=== PATIENT | female | born 1960 | race Asian ===

== ENCOUNTER 2016-08-11 01:02 | Outpatient (CLI) | payer OTHER ==
[~2016-08-11 01:02] MED LIST: ASPIR-8181 MG PO; ATRIPLA OR; BACTRIM1 TAB PO; CONZIP100 MG OR; FURO40TA93 PO; GABA100C2 PO; LYRICA150 MG PO; LYRICA25 MG OR; METOPROLOL25 M1 OR; NEXIUM2.5 MG PO; NEXIUM20 M1 PO; ONDA4TAB3 PO; OXYC5TAB53 PO; PROM25TA52 PO; SPIR25TA66 PO; TRAZODONE300 MG PO; WARFARIN5 MG PO
== END 2016-08-11 22:07 | disposition home or self-care (01) ==
LOC: LAB 01:02
DX: Z95.2 Presence of prosthetic heart valve (principal); Z79.01 Long term (current) use of anticoagulants; Z51.81 Encounter for therapeutic drug level monitoring
CPT/HCPCS: 36415; 85610

== ENCOUNTER 2016-08-18 01:21 | Outpatient (CLI) | payer OTHER ==
[2016-08-18 02:26] LABS: PLATELET COUNT 270 K/uL (152-353)
== END 2016-08-18 23:10 ==
LOC: LAB 01:21
PROVIDERS: Internal Medicine
DX: Z79.01 Long term (current) use of anticoagulants (principal); Z95.2 Presence of prosthetic heart valve; Z51.81 Encounter for therapeutic drug level monitoring
CPT/HCPCS: 36415; 85027; 85610

== ENCOUNTER 2016-08-25 17:49 | Outpatient (CLI) | payer OTHER ==
[2016-08-25 22:30] LABS: PLATELET COUNT 214 K/uL (152-353)
== END 2016-08-25 20:10 | disposition home or self-care (01) ==
LOC: LABW 17:49
PROVIDERS: Internal Medicine
DX: Z95.2 Presence of prosthetic heart valve (principal); Z79.01 Long term (current) use of anticoagulants; Z51.81 Encounter for therapeutic drug level monitoring
CPT/HCPCS: 36415; 85027; 85610

== ENCOUNTER 2016-09-08 09:02 | Outpatient (CLI) | payer OTHER | END 2016-09-08 23:01 | disposition home or self-care (01) | LOC: LABW 09:02 | DX: Z95.2 Presence of prosthetic heart valve (principal); Z79.01 Long term (current) use of anticoagulants; Z51.81 Encounter for therapeutic drug level monitoring | CPT/HCPCS: 36415; 85610 ==

== ENCOUNTER 2016-09-15 01:32 | Outpatient (CLI) | payer OTHER | END 2016-09-15 20:08 | disposition home or self-care (01) | LOC: LAB 01:32 | PROVIDERS: Internal Medicine | DX: E87.6 Hypokalemia (principal); Z95.2 Presence of prosthetic heart valve; Z79.01 Long term (current) use of anticoagulants; Z51.81 Encounter for therapeutic drug level monitoring | CPT/HCPCS: 36415; 80053; 85610 ==

== ENCOUNTER 2016-09-18 18:06 | Outpatient (CLI) | payer OTHER | END 2016-09-18 19:26 | disposition home or self-care (01) | LOC: US 18:06 | DX: M79.605 Pain in left leg (principal); M79.604 Pain in right leg ==

== ENCOUNTER 2016-09-23 01:21 | Outpatient (CLI) | payer OTHER ==
[2016-09-23 01:55] LABS: POTASSIUM 3.7 mmol/L (3.6-5.2)
== END 2016-09-23 19:19 | disposition home or self-care (01) ==
LOC: LABW 01:21
PROVIDERS: Internal Medicine
DX: Z95.2 Presence of prosthetic heart valve (principal); Z79.01 Long term (current) use of anticoagulants; Z51.81 Encounter for therapeutic drug level monitoring; E87.6 Hypokalemia
CPT/HCPCS: 36415; 80053; 85610

== ENCOUNTER 2016-10-07 03:58 | Outpatient (CLI) | payer OTHER | END 2016-10-07 19:28 | disposition home or self-care (01) | LOC: LABW 03:58 | DX: Z79.01 Long term (current) use of anticoagulants (principal); Z95.2 Presence of prosthetic heart valve; Z51.81 Encounter for therapeutic drug level monitoring | CPT/HCPCS: 36415; 85610 ==

== ENCOUNTER 2016-10-13 01:58 | Outpatient (CLI) | payer OTHER | END 2016-10-13 19:17 | disposition home or self-care (01) | LOC: LABW 01:58 | DX: Z95.2 Presence of prosthetic heart valve (principal); Z79.01 Long term (current) use of anticoagulants; Z51.81 Encounter for therapeutic drug level monitoring | CPT/HCPCS: 36415; 85610 ==

== ENCOUNTER 2016-10-20 05:08 | Outpatient (CLI) | payer OTHER | END 2016-10-20 19:21 | disposition home or self-care (01) | LOC: LABW 05:08 | DX: Z95.2 Presence of prosthetic heart valve (principal); Z79.01 Long term (current) use of anticoagulants; Z51.81 Encounter for therapeutic drug level monitoring | CPT/HCPCS: 36415; 85610 ==

== ENCOUNTER 2016-10-27 00:39 | Outpatient (CLI) | payer OTHER | END 2016-10-27 01:39 | disposition home or self-care (01) | LOC: LABW 00:39 | DX: Z79.01 Long term (current) use of anticoagulants (principal); Z95.2 Presence of prosthetic heart valve; Z51.81 Encounter for therapeutic drug level monitoring | CPT/HCPCS: 36415; 85610 ==

== ENCOUNTER 2016-10-29 11:15 | Day surgery (SDC) | payer OTHER | END 2016-10-29 13:30 | disposition home or self-care (01) | LOC: OR 11:15 | PROC: 0DB68ZZ Excision of Stomach, Via Natural or Artificial Opening Endoscopic (ICD-10-PCS; principal; 2016-10-29) | DX: K22.10 Ulcer of esophagus without bleeding (principal); K29.00 Acute gastritis without bleeding; K26.9 Duodenal ulcer, unspecified as acute or chronic, without hemorrhage or perforation; R10.13 Epigastric pain; R11.0 Nausea; K21.0 Gastro-esophageal reflux disease with esophagitis; K29.80 Duodenitis without bleeding | CPT/HCPCS: J2001; J2704; J7120 ==

== ENCOUNTER 2016-11-04 05:17 | Outpatient (CLI) | payer OTHER | END 2016-11-04 19:15 | disposition home or self-care (01) | LOC: LABW 05:17 | DX: Z79.01 Long term (current) use of anticoagulants (principal); Z95.2 Presence of prosthetic heart valve; Z51.81 Encounter for therapeutic drug level monitoring | CPT/HCPCS: 36415; 85610 ==

== ENCOUNTER 2016-11-05 11:01 | Outpatient (CLI) | payer OTHER ==
[2016-11-05 11:30] LABS: POTASSIUM 3.3 mmol/L (3.6-5.2)
== END 2016-11-05 19:07 | disposition home or self-care (01) ==
LOC: LABW 11:01
PROVIDERS: Internal Medicine Cardiovascular Disease
DX: Z79.899 Other long term (current) drug therapy (principal); R06.02 Shortness of breath; Z51.81 Encounter for therapeutic drug level monitoring
CPT/HCPCS: 36415; 80048; 83880

== ENCOUNTER 2016-11-11 03:54 | Outpatient (CLI) | payer OTHER | END 2016-11-11 19:09 | disposition home or self-care (01) | LOC: LABW 03:54 | DX: Z79.01 Long term (current) use of anticoagulants (principal); Z95.2 Presence of prosthetic heart valve; Z51.81 Encounter for therapeutic drug level monitoring | CPT/HCPCS: 36415; 85610 ==

== ENCOUNTER 2016-11-24 02:52 | Outpatient (CLI) | payer OTHER | END 2016-11-24 19:39 | disposition home or self-care (01) | LOC: LABW 02:52 | DX: Z79.01 Long term (current) use of anticoagulants (principal) | CPT/HCPCS: 36415; 85610 ==

== ENCOUNTER 2016-12-01 00:59 | Outpatient (CLI) | payer OTHER | END 2016-12-01 19:03 | disposition home or self-care (01) | LOC: LABW 00:59 | DX: Z79.01 Long term (current) use of anticoagulants (principal); Z51.81 Encounter for therapeutic drug level monitoring | CPT/HCPCS: 36415; 85610 ==

== ENCOUNTER 2016-12-19 04:50 | Outpatient (CLI) | payer OTHER | END 2016-12-19 19:01 | disposition home or self-care (01) | LOC: LABW 04:50 | DX: Z79.01 Long term (current) use of anticoagulants (principal); Z95.2 Presence of prosthetic heart valve; Z51.81 Encounter for therapeutic drug level monitoring | CPT/HCPCS: 85610 ==

== ENCOUNTER 2017-01-03 22:00 | Emergency (ER) | payer OTHER ==
[~2017-01-03] VITALS: Ht 167.6 cm; Wt 112.5 kg
[2017-01-03] MEDS ORDERED: BUMEX2 MG PO (22:31)
[2017-01-03] MEDS ORDERED: JANTOVEN7.5 MG OR (22:33)
[2017-01-03] MEDS ORDERED: LORTAB 10-325 M1 TAB PO (22:33)
[2017-01-03 22:55] LABS: PLATELET COUNT 327 K/uL (152-353)
[2017-01-03 23:54] VITALS: BP 150/62; TEMP 98.1
== END 2017-01-04 | disposition home or self-care (01) ==
LOC: ED 22:00
DX: S39.012A Strain of muscle, fascia and tendon of lower back, initial encounter (principal); S29.012A Strain of muscle and tendon of back wall of thorax, initial encounter
CPT/HCPCS: 36415; 85027; 96374; 99284; J1885

== ENCOUNTER 2017-02-03 00:08 | Outpatient (CLI) | payer OTHER ==
[~2017-02-03 00:08] MED LIST changes: +BUMEX2 MG PO; +JANTOVEN7.5 MG OR; +LORTAB 10-325 M1 TAB PO
== END 2017-02-03 19:07 | disposition home or self-care (01) ==
LOC: LABW 00:08
DX: Z79.01 Long term (current) use of anticoagulants (principal); Z95.2 Presence of prosthetic heart valve; Z51.81 Encounter for therapeutic drug level monitoring
CPT/HCPCS: 36415; 85610

== ENCOUNTER 2017-02-18 14:38 | Outpatient (CLI) | payer OTHER ==
[2017-02-18 15:19] LABS: PLATELET COUNT 202 K/uL (152-353)
[2017-02-18 15:34] LABS: POTASSIUM 3.6 mmol/L (3.6-5.2)
== END 2017-02-18 16:00 | disposition home or self-care (01) ==
LOC: LABW 14:38
PROVIDERS: Internal Medicine Cardiovascular Disease
DX: I50.9 Heart failure, unspecified (principal); Z79.899 Other long term (current) drug therapy; Z51.81 Encounter for therapeutic drug level monitoring; R06.02 Shortness of breath
CPT/HCPCS: 36415; 80048; 83880; 85027

== ENCOUNTER 2017-04-21 02:27 | Outpatient (CLI) | payer OTHER | END 2017-04-21 19:01 | LOC: LABW 02:27 | DX: Z79.01 Long term (current) use of anticoagulants (principal); Z51.81 Encounter for therapeutic drug level monitoring; Z95.2 Presence of prosthetic heart valve | CPT/HCPCS: 36415; 85610 ==

== ENCOUNTER 2017-04-22 11:30 | Outpatient (CLI) | payer OTHER ==
[2017-04-22 12:17] LABS: POTASSIUM 3.9 mmol/L (3.6-5.2)
== END 2017-04-22 19:07 | disposition home or self-care (01) ==
LOC: LABW 11:30
PROVIDERS: Internal Medicine Cardiovascular Disease
DX: I50.9 Heart failure, unspecified (principal)
CPT/HCPCS: 36415; 80048; 83880

== ENCOUNTER 2017-05-05 02:17 | Outpatient (CLI) | payer OTHER | END 2017-05-05 19:00 | LOC: LABW 02:17 | DX: Z79.01 Long term (current) use of anticoagulants (principal); Z51.81 Encounter for therapeutic drug level monitoring; Z95.2 Presence of prosthetic heart valve | CPT/HCPCS: 36415; 85610 ==

== ENCOUNTER 2017-05-12 00:44 | Outpatient (CLI) | payer OTHER | END 2017-05-12 01:45 | disposition home or self-care (01) | LOC: LABW 00:44 | DX: Z79.01 Long term (current) use of anticoagulants (principal); Z51.81 Encounter for therapeutic drug level monitoring | CPT/HCPCS: 36415; 85610 ==

== ENCOUNTER 2017-06-02 06:51 | Day surgery (SDC) | payer OTHER ==
[2017-06-02 08:30] LABS: PLATELET COUNT 202 K/uL (152-353)
[2017-06-02 08:37] LABS: POTASSIUM 3.5 mmol/L (3.6-5.2)
[2017-06-02 09:11] LABS: PARTIAL THROMBOPLASTIN TIME 39.9 SECONDS (24.5-33.6)
== END 2017-06-02 12:06 | disposition home or self-care (01) ==
LOC: OR 06:51
PROVIDERS: Student in an Organized Health Care Education/Training Program
PROC: 0DB48ZZ Excision of Esophagogastric Junction, Via Natural or Artificial Opening Endoscopic (ICD-10-PCS; principal; 2017-06-02)
DX: K29.50 Unspecified chronic gastritis without bleeding (principal); K21.0 Gastro-esophageal reflux disease with esophagitis; K44.9 Diaphragmatic hernia without obstruction or gangrene; R11.2 Nausea with vomiting, unspecified; Z79.01 Long term (current) use of anticoagulants; Z95.2 Presence of prosthetic heart valve; R10.13 Epigastric pain
CPT/HCPCS: 36415; 80053; 85027; 85610; 85730; J2001; J2250; J2704; J3010

== ENCOUNTER 2017-06-16 00:42 | Outpatient (CLI) | payer OTHER | END 2017-06-16 19:00 | disposition home or self-care (01) | LOC: LABW 00:42 | DX: Z79.01 Long term (current) use of anticoagulants (principal) | CPT/HCPCS: 36415; 85610 ==

== ENCOUNTER 2017-07-03 03:56 | Outpatient (CLI) | payer OTHER | END 2017-07-03 19:16 | disposition home or self-care (01) | LOC: LABW 03:56 | DX: Z79.01 Long term (current) use of anticoagulants (principal); Z51.81 Encounter for therapeutic drug level monitoring | CPT/HCPCS: 36415; 85610 ==

== ENCOUNTER 2017-08-03 00:46 | Outpatient (CLI) | payer OTHER | END 2017-08-03 20:15 | disposition home or self-care (01) | LOC: LABW 00:46 | DX: Z79.01 Long term (current) use of anticoagulants (principal); Z51.81 Encounter for therapeutic drug level monitoring | CPT/HCPCS: 36415; 85610 ==

== ENCOUNTER 2017-08-14 05:17 | Outpatient (CLI) | payer OTHER | END 2017-08-14 19:27 | disposition home or self-care (01) | LOC: LABW 05:17 | DX: Z79.01 Long term (current) use of anticoagulants (principal); Z51.81 Encounter for therapeutic drug level monitoring | CPT/HCPCS: 36415; 85610 ==

== ENCOUNTER 2017-08-24 03:32 | Outpatient (CLI) | payer OTHER | END 2017-08-24 21:06 | disposition home or self-care (01) | LOC: LABW 03:32 | DX: Z79.01 Long term (current) use of anticoagulants (principal); Z51.81 Encounter for therapeutic drug level monitoring | CPT/HCPCS: 85610 ==

== ENCOUNTER 2017-09-01 03:07 | Outpatient (CLI) | payer OTHER | END 2017-09-01 20:01 | disposition home or self-care (01) | LOC: LABW 03:07 | DX: Z79.01 Long term (current) use of anticoagulants (principal); Z51.81 Encounter for therapeutic drug level monitoring | CPT/HCPCS: 36415; 85610 ==

== ENCOUNTER 2017-10-27 12:56 | Outpatient (CLI) | payer OTHER | END 2017-10-27 22:55 | disposition home or self-care (01) | LOC: LABW 12:56 | DX: Z79.899 Other long term (current) drug therapy (principal); Z51.81 Encounter for therapeutic drug level monitoring; Z95.2 Presence of prosthetic heart valve | CPT/HCPCS: 36415; 85610 ==

== ENCOUNTER 2017-11-05 07:48 | Outpatient (CLI) | payer OTHER ==
[~2017-11-05] VITALS: Ht 167.6 cm; Wt 110.2 kg
== END 2017-11-05 19:25 | disposition home or self-care (01) ==
LOC: LAB 07:48 → NM 07:48
DX: Z95.2 Presence of prosthetic heart valve (principal); Z51.81 Encounter for therapeutic drug level monitoring; R07.89 Other chest pain
CPT/HCPCS: 36415; 85610; A9500; J2785

== ENCOUNTER 2017-12-04 06:25 | Outpatient (CLI) | payer OTHER | END 2017-12-04 22:43 | disposition home or self-care (01) | LOC: LABW 06:25 | DX: Z95.2 Presence of prosthetic heart valve (principal); Z51.81 Encounter for therapeutic drug level monitoring | CPT/HCPCS: 36415; 85610 ==

== ENCOUNTER 2018-01-19 04:02 | Outpatient (CLI) | payer OTHER | END 2018-01-19 19:57 | disposition home or self-care (01) | LOC: LABW 04:02 | DX: Z95.2 Presence of prosthetic heart valve (principal); Z79.899 Other long term (current) drug therapy | CPT/HCPCS: 36415; 85610 ==

== ENCOUNTER 2018-02-09 01:58 | Outpatient (CLI) | payer OTHER ==
[~2018-02-09 01:58] MED LIST changes: -METOPROLOL25 M1 OR; +METOPROLOL25 M1 PO
== END 2018-02-09 23:42 | disposition home or self-care (01) ==
LOC: LABW 01:58
DX: Z51.81 Encounter for therapeutic drug level monitoring (principal)
CPT/HCPCS: 36415; 85610

== ENCOUNTER 2018-02-24 00:47 | Outpatient (CLI) | payer OTHER | END 2018-02-24 22:08 | disposition home or self-care (01) | LOC: LABW 00:47 | DX: Z95.2 Presence of prosthetic heart valve (principal); Z51.81 Encounter for therapeutic drug level monitoring | CPT/HCPCS: 36415; 85610 ==

== ENCOUNTER 2018-03-23 02:47 | Outpatient (CLI) | payer OTHER | END 2018-03-23 23:41 | disposition home or self-care (01) | LOC: LABW 02:47 | DX: Z79.01 Long term (current) use of anticoagulants (principal); Z95.2 Presence of prosthetic heart valve | CPT/HCPCS: 36415; 85610 ==

== ENCOUNTER 2018-04-22 17:23 | Emergency (ER) | payer OTHER ==
[~2018-04-22] VITALS: Ht 162.6 cm; Wt 110.2 kg
[2018-04-22] MEDS ORDERED: FURO40TA93 PO (17:38)
[2018-04-22] MEDS ORDERED: PROZAC10 MG PO (17:39)
[2018-04-22] MEDS ORDERED: PROBIOTIC1 TAB PO (17:39)
[2018-04-22] MEDS ORDERED: DOCU100C10 PO (17:39)
[2018-04-22] MEDS ORDERED: PROVENTIL IN (17:40)
[2018-04-22] MEDS ORDERED: PRED5TAB3 PO (17:41)
[2018-04-22] MEDS ORDERED: ZANTAC300 MG PO (17:41)
[2018-04-22] MEDS ORDERED: DEXILANT30 MG PO (17:42)
[2018-04-22] MEDS ORDERED: ASCO500T18 PO (17:42)
[2018-04-22] MEDS ORDERED: ZOFRAN8 MG PO (17:43)
[2018-04-22] MEDS ORDERED: SPIRIVA IN (17:43)
[2018-04-22] MEDS ORDERED: ALBUTEROL0.083 % IN (17:44)
[2018-04-22] MEDS ORDERED: BUDE1AER5 INH (17:44)
[2018-04-22] MEDS ORDERED: SENNA LAX8.6 MG PO (17:45)
[2018-04-22] MEDS ORDERED: K-TAB10 MEQ PO (17:45)
[2018-04-22] MEDS ORDERED: WARF10TA5 PO (17:46)
[2018-04-22] MEDS ORDERED: WARF7.5T5 PO (17:46)
[2018-04-22] MEDS ORDERED: SUCRALFATE1 GM PO (17:47)
[2018-04-22] MEDS ORDERED: FERROUS SULF325 MG PO (17:47)
[2018-04-22] MEDS ORDERED: NITR0.4S2 SL (17:48)
[2018-04-22] MEDS ORDERED: RANO500T PO (17:49)
[2018-04-22 19:08] LABS: PLATELET COUNT 218 K/uL (152-353)
[2018-04-22 19:34] LABS: POTASSIUM 3.9 mmol/L (3.6-5.2); SODIUM 141 mmol/L (136-145)
[2018-04-22 21:18] VITALS: BP 119/69; TEMP 98.2
== END 2018-04-22 21:19 | disposition home or self-care (01) ==
LOC: ED 17:23
DX: M79.605 Pain in left leg (principal); M79.604 Pain in right leg; R06.02 Shortness of breath; R00.0 Tachycardia, unspecified
CPT/HCPCS: 36415; 80053; 81000; 82550; 82553; 83880; 84484; 85027; 85379; 93005; 99283

== ENCOUNTER 2018-06-01 07:48 | Outpatient (CLI) | payer OTHER ==
[~2018-06-01 07:48] MED LIST changes: +ALBUTEROL0.083 % IN; +ASCO500T18 PO; +BUDE1AER5 INH; +DEXILANT30 MG PO; +DOCU100C10 PO; +FERROUS SULF325 MG PO; +K-TAB10 MEQ PO; +NITR0.4S2 SL; +PRED5TAB3 PO; +PROBIOTIC1 TAB PO; +PROVENTIL IN; +PROZAC10 MG PO; +RANO500T PO; +SENNA LAX8.6 MG PO; +SPIRIVA IN; +SUCRALFATE1 GM PO; +WARF10TA5 PO; +WARF7.5T5 PO; +ZANTAC300 MG PO; +ZOFRAN8 MG PO
== END 2018-06-01 22:13 | disposition home or self-care (01) ==
LOC: MAMMO 07:48
DX: Z12.31 Encounter for screening mammogram for malignant neoplasm of breast (principal)

== ENCOUNTER 2018-06-23 12:01 | Outpatient (CLI) | payer OTHER ==
[2018-06-23 12:22] LABS: PLATELET COUNT 249 K/uL (152-353)
[2018-06-23 12:48] LABS: POTASSIUM 3.8 mmol/L (3.6-5.2)
== END 2018-06-23 20:19 | disposition home or self-care (01) ==
LOC: LABW 12:01
PROVIDERS: Family Medicine
DX: I10 Essential (primary) hypertension (principal); R53.83 Other fatigue; E55.9 Vitamin D deficiency, unspecified; Z79.01 Long term (current) use of anticoagulants; E78.2 Mixed hyperlipidemia
CPT/HCPCS: 36415; 80053; 80061; 81000; 82306; 82607; 84443; 85027; 85610

== ENCOUNTER 2018-07-01 12:58 | Outpatient (CLI) | payer OTHER | END 2018-07-01 23:45 | disposition home or self-care (01) | LOC: LABW 12:58 | DX: R73.9 Hyperglycemia, unspecified (principal) | CPT/HCPCS: 36415; 83036 ==

== ENCOUNTER 2018-07-05 13:20 | Outpatient (CLI) | payer OTHER | END 2018-07-05 22:51 | disposition home or self-care (01) | LOC: RAD 13:20 | DX: M25.511 Pain in right shoulder (principal) ==

== ENCOUNTER 2018-07-13 18:04 | Observation (INO) | payer OTHER ==
[~2018-07-13] VITALS: Ht 162.6 cm; Wt 112.0 kg
[2018-07-13 19:00] LABS: PLATELET COUNT 204 K/uL (152-353)
[2018-07-13 19:25] LABS: POTASSIUM 4.4 mmol/L (3.6-5.2); SODIUM 140 mmol/L (136-145)
[2018-07-13 21:49] LABS: PARTIAL THROMBOPLASTIN TIME 29.2 SECONDS (24.5-33.6)
[2018-07-14 00:08] VITALS: BP 153/65; TEMP 97.9; Ht 162.6 cm; Wt 112.0 kg
[2018-07-14] MEDS ORDERED: ATRIPLA PO (00:28)
[2018-07-14] MEDS ORDERED: TRAZODONE HYDRO50 MG PO (00:33)
[2018-07-14] MEDS ORDERED: OMEPRAZOLE DR40 MG PO (00:52)
[2018-07-14] MEDS ORDERED: MONT10TA PO (00:53)
[2018-07-14 04:00] VITALS: BP 133/52; TEMP 98.6
[2018-07-14 08:00] VITALS: BP 135/65; TEMP 98.7
[2018-07-14] MEDS ORDERED: GABA100C2 PO (11:12)
[2018-07-14] MEDS ORDERED: SPIR50TA8 PO (11:13)
[2018-07-14] MEDS ORDERED: POTASSIUM CHLO20 ME1 PO (11:14)
[2018-07-14] MEDS ORDERED: TRELEGY ELLIPTA1 AER PO (11:29)
[2018-07-14] MEDS ORDERED: ACYCLOVIR800 MG PO (11:36)
[2018-07-14 12:00] VITALS: BP 132/54; TEMP 98.8
== END 2018-07-14 15:25 | disposition home or self-care (01) ==
LOC: MED/SURG 18:04
PROVIDERS: ADMIT Family Medicine
DX: R07.89 Other chest pain (principal); J44.9 Chronic obstructive pulmonary disease, unspecified
CPT/HCPCS: 36415; 80053; 82550; 82553; 84484; 85027; 85610; 85730; 93005; 94668; 94760; 96367; 96374; 96375; 99220; G0378; G0379; J0696; J1885; J2930

== ENCOUNTER 2018-07-23 12:29 | Outpatient (CLI) | payer OTHER ==
[~2018-07-23 12:29] MED LIST changes: +ACYCLOVIR800 MG PO; +ATRIPLA PO; +MONT10TA PO; +OMEPRAZOLE DR40 MG PO; +POTASSIUM CHLO20 ME1 PO; +SPIR50TA8 PO; +TRAZODONE HYDRO50 MG PO; +TRELEGY ELLIPTA1 AER PO
== END 2018-07-23 20:50 | disposition home or self-care (01) ==
LOC: LABW 12:29
DX: Z95.4 Presence of other heart-valve replacement (principal)
CPT/HCPCS: 36415; 85610

== ENCOUNTER 2018-08-24 13:08 | Outpatient (CLI) | payer OTHER | END 2018-08-24 20:45 | disposition home or self-care (01) | LOC: LABW 13:08 | DX: Z21 Asymptomatic human immunodeficiency virus [HIV] infection status (principal) | CPT/HCPCS: 36415; 80074; 86592; 87490; 87590 ==

== ENCOUNTER 2018-09-06 17:53 | Outpatient (CLI) | payer OTHER ==
[2018-09-06 23:46] LABS: PLATELET COUNT 247 K/uL (152-353)
== END 2018-09-06 19:51 | disposition home or self-care (01) ==
LOC: LABW 17:53
PROVIDERS: Family Medicine
DX: M19.90 Unspecified osteoarthritis, unspecified site (principal); I50.9 Heart failure, unspecified; J44.9 Chronic obstructive pulmonary disease, unspecified; B20 Human immunodeficiency virus [HIV] disease; G25.81 Restless legs syndrome; Z51.81 Encounter for therapeutic drug level monitoring
CPT/HCPCS: 36415; 80053; 80061; 82306; 82607; 83036; 83540; 84439; 84443; 85027; 85610

== ENCOUNTER 2018-11-03 16:04 | Outpatient (CLI) | payer OTHER ==
[2018-11-03 16:50] LABS: PLATELET COUNT 264 K/uL (152-353)
[2018-11-03 17:07] LABS: POTASSIUM 3.7 mmol/L (3.6-5.2)
== END 2018-11-03 20:44 | disposition home or self-care (01) ==
LOC: LABW 16:04
PROVIDERS: Internal Medicine Pulmonary Disease
DX: R06.00 Dyspnea, unspecified (principal)
CPT/HCPCS: 36415; 36600; 80053; 82805; 83880; 84443; 85027; 85379

== ENCOUNTER 2018-11-09 11:51 | Outpatient (CLI) | payer OTHER | END 2018-11-09 22:48 | disposition home or self-care (01) | LOC: RESP 11:51 | DX: R06.00 Dyspnea, unspecified (principal) ==

== ENCOUNTER 2019-04-15 02:43 | Outpatient (CLI) | payer OTHER ==
[~2019-04-15 02:43] MED LIST changes: +METO-837 PO; +WARF5TAB6 PO
== END 2019-04-15 19:18 | disposition home or self-care (01) ==
LOC: LAB 02:43
DX: Z79.01 Long term (current) use of anticoagulants (principal)
CPT/HCPCS: 36415; 85610

== ENCOUNTER 2019-04-18 21:57 | Outpatient (CLI) | payer OTHER ==
[2019-04-19] MEDS ORDERED: ROPINIROLE0.5 MG PO (08:30)
[2019-04-19] MEDS ORDERED: DICYCLOMINE HYD20 MG PO (08:32)
[2019-04-19] MEDS ORDERED: SERT50TA PO (08:32)
[2019-04-19] MEDS ORDERED: POTASSIUM CHLO20 ME1 PO (08:33)
[2019-04-19] MEDS ORDERED: FURO40TA93 PO (08:33)
[2019-04-19] MEDS ORDERED: SPIR50TA8 PO (08:35)
[2019-04-19] MEDS ORDERED: DALIRESP500 MC1 PO (08:36)
[2019-04-19] MEDS ORDERED: OMEPRAZOLE DR40 MG PO (08:39)
[2019-04-19] MEDS ORDERED: WARF7.5T5 PO (08:40)
[2019-04-19] MEDS ORDERED: CARAFATE1 GM PO (08:40)
[2019-04-19] MEDS ORDERED: NEURONTIN800 MG PO (08:42)
[2019-04-19] MEDS ORDERED: IRON325 MG PO (08:42)
[2019-04-19] MEDS ORDERED: RANO500T PO (08:42)
[2019-04-19] MEDS ORDERED: MONT10TA PO (08:43)
[2019-04-19] MEDS ORDERED: FLUO10CA2 PO (08:44)
[2019-04-19] MEDS ORDERED: METO-837 PO (08:45)
[2019-04-19] MEDS ORDERED: ZANTAC300 MG PO (08:46)
[2019-04-19] MEDS ORDERED: COLACE CLEAR50 MG PO (08:46)
[2019-04-19] MEDS ORDERED: DEXILANT60 M1 PO (08:47)
[2019-04-19] MEDS ORDERED: BUMEX2 MG PO (08:47)
== END 2019-04-18 23:06 | disposition home or self-care (01) ==
LOC: LABW 21:57
DX: Z79.01 Long term (current) use of anticoagulants (principal)
CPT/HCPCS: 36415; 85610

== ENCOUNTER 2019-04-19 08:02 | Inpatient (IN) | payer OTHER ==
[~2019-04-19] VITALS: Ht 162.6 cm; Wt 116.7 kg
[2019-04-19] VITALS (7 sets, daily range): BP systolic 146–173; BP diastolic 51–101; TEMP 97.5–98; Ht 162.6 cm; Wt 116.7 kg
[2019-04-19] MEDS ORDERED: ROPINIROLE0.5 MG PO (08:30)
[2019-04-19] MEDS ORDERED: SERT50TA PO (08:32)
[2019-04-19] MEDS ORDERED: DICYCLOMINE HYD20 MG PO (08:32)
[2019-04-19] MEDS ORDERED: FURO40TA93 PO (08:33)
[2019-04-19] MEDS ORDERED: POTASSIUM CHLO20 ME1 PO (08:33)
[2019-04-19] MEDS ORDERED: SPIR50TA8 PO (08:35)
[2019-04-19] MEDS ORDERED: DALIRESP500 MC1 PO (08:36)
[2019-04-19] MEDS ORDERED: OMEPRAZOLE DR40 MG PO (08:39)
[2019-04-19] MEDS ORDERED: WARF7.5T5 PO (08:40)
[2019-04-19] MEDS ORDERED: CARAFATE1 GM PO (08:40)
[2019-04-19] MEDS ORDERED: NEURONTIN800 MG PO (08:42)
[2019-04-19] MEDS ORDERED: RANO500T PO (08:42)
[2019-04-19] MEDS ORDERED: IRON325 MG PO (08:42)
[2019-04-19] MEDS ORDERED: MONT10TA PO (08:43)
[2019-04-19] MEDS ORDERED: FLUO10CA2 PO (08:44)
[2019-04-19] MEDS ORDERED: METO-837 PO (08:45)
[2019-04-19] MEDS ORDERED: COLACE CLEAR50 MG PO (08:46)
[2019-04-19] MEDS ORDERED: ZANTAC300 MG PO (08:46)
[2019-04-19] MEDS ORDERED: BUMEX2 MG PO (08:47)
[2019-04-19] MEDS ORDERED: DEXILANT60 M1 PO (08:47)
[2019-04-19 09:06] LABS: PLATELET COUNT 231 K/uL (152-353)
[2019-04-19 09:10] LABS: POTASSIUM 3.7 mmol/L (3.6-5.2)
[2019-04-19 09:23] LABS: PARTIAL THROMBOPLASTIN TIME 42.2 SECONDS (24.5-33.6)
[2019-04-20] VITALS: BP 102/56; TEMP 97.5
[2019-04-20 04:00] VITALS: BP 130/41; TEMP 97.6
[2019-04-20 05:32] LABS: PLATELET COUNT 187 K/uL (152-353)
[2019-04-20 05:55] LABS: POTASSIUM 3.9 mmol/L (3.6-5.2)
[2019-04-20 06:22] LABS: PARTIAL THROMBOPLASTIN TIME 38.4 SECONDS (24.5-33.6)
[2019-04-20 13:13] VITALS: BP 108/52; TEMP 98
== END 2019-04-20 14:00 | disposition short-term general hospital (02) | DRG 378 ==
LOC: ED 08:02 → MED/SURG 10:15
PROVIDERS: Internal Medicine; ADMIT Family Medicine
PROC: 30233N1 Transfusion of Nonautologous Red Blood Cells into Peripheral Vein, Percutaneous Approach (ICD-10-PCS; principal; 2019-04-19)
DX: K92.1 Melena (principal); D62 Acute posthemorrhagic anemia; K92.2 Gastrointestinal hemorrhage, unspecified; J44.9 Chronic obstructive pulmonary disease, unspecified; R79.1 Abnormal coagulation profile; R51 Headache; K21.9 Gastro-esophageal reflux disease without esophagitis; K44.9 Diaphragmatic hernia without obstruction or gangrene; K25.9 Gastric ulcer, unspecified as acute or chronic, without hemorrhage or perforation; Z79.01 Long term (current) use of anticoagulants; Z95.2 Presence of prosthetic heart valve
CPT/HCPCS: 36415; 80053; 81000; 82272; 85027; 85610; 85730; 86850; 86900; 86901; 86922; 94640; 94664; 94760; 99283; P9016

== ENCOUNTER 2019-05-02 01:36 | Outpatient (CLI) | payer OTHER ==
[~2019-05-02 01:36] MED LIST changes: +CARAFATE1 GM PO; +COLACE CLEAR50 MG PO; +DALIRESP500 MC1 PO; +DEXILANT60 M1 PO; +DICYCLOMINE HYD20 MG PO; +FLUO10CA2 PO; +IRON325 MG PO; +NEURONTIN800 MG PO; +ROPINIROLE0.5 MG PO; +SERT50TA PO
== END 2019-05-02 22:14 | disposition home or self-care (01) ==
LOC: LABW 01:36
DX: Z79.01 Long term (current) use of anticoagulants (principal)
CPT/HCPCS: 36415; 85610

== ENCOUNTER 2019-06-08 08:08 | Outpatient (CLI) | payer OTHER ==
[2019-06-08 08:16] LABS: PLATELET COUNT 221 K/uL (152-353)
== END 2019-06-08 21:15 | disposition home or self-care (01) ==
LOC: LAB 08:08
PROVIDERS: Nurse Practitioner Family
DX: B20 Human immunodeficiency virus [HIV] disease (principal); J44.9 Chronic obstructive pulmonary disease, unspecified; G47.00 Insomnia, unspecified; Z79.01 Long term (current) use of anticoagulants; Z95.2 Presence of prosthetic heart valve; Z00.00 Encounter for general adult medical examination without abnormal findings; Z79.899 Other long term (current) drug therapy; R53.83 Other fatigue
CPT/HCPCS: 80053; 80061; 83036; 84439; 84443; 85027; 85610

== ENCOUNTER 2019-09-29 08:47 | Outpatient (CLI) | payer OTHER ==
[2019-09-29 09:01] LABS: PLATELET COUNT 254 K/uL (152-353)
[2019-09-29 09:12] LABS: POTASSIUM 3.7 mmol/L (3.6-5.2)
== END 2019-09-29 21:29 | disposition home or self-care (01) ==
LOC: LABW 08:47
PROVIDERS: Registered Nurse
DX: B20 Human immunodeficiency virus [HIV] disease (principal); Z79.899 Other long term (current) drug therapy; Z79.01 Long term (current) use of anticoagulants; I50.42 Chronic combined systolic (congestive) and diastolic (congestive) heart failure
CPT/HCPCS: 36415; 80053; 80061; 83880; 85027; 85610; 86361; 87535

== ENCOUNTER 2019-09-30 15:13 | Outpatient (CLI) | payer OTHER | END 2019-09-30 22:48 | disposition home or self-care (01) | LOC: LAB 15:13 | DX: B20 Human immunodeficiency virus [HIV] disease (principal); Z79.899 Other long term (current) drug therapy; Z79.01 Long term (current) use of anticoagulants; I50.42 Chronic combined systolic (congestive) and diastolic (congestive) heart failure | CPT/HCPCS: 36415; 86361; 87535 ==

== ENCOUNTER 2019-10-10 13:07 | Outpatient (CLI) | payer OTHER | END 2019-10-10 23:08 | disposition home or self-care (01) | LOC: MAMMO 13:07 → RAD 15:00 → MAMMO 23:08 | DX: Z12.31 Encounter for screening mammogram for malignant neoplasm of breast (principal); M25.50 Pain in unspecified joint; N95.8 Other specified menopausal and perimenopausal disorders; Z79.01 Long term (current) use of anticoagulants | CPT/HCPCS: 36415; 85610 ==

== ENCOUNTER 2019-10-18 00:11 | Outpatient (CLI) | payer OTHER ==
[2019-10-18 14:30] LABS: PLATELET COUNT 353 K/uL (152-353)
== END 2019-10-18 20:36 | disposition home or self-care (01) ==
LOC: LABW 00:11
PROVIDERS: Nurse Practitioner Family
DX: R79.1 Abnormal coagulation profile (principal); Z79.01 Long term (current) use of anticoagulants
CPT/HCPCS: 85027; 85610

== ENCOUNTER 2019-11-03 11:14 | Inpatient (IN) | payer OTHER ==
[~2019-11-03] VITALS: Ht 162.6 cm; Wt 92.6 kg
[2019-11-03] VITALS (9 sets, daily range): BP systolic 117–158; BP diastolic 49–96; TEMP 98.2–99.4; Ht 162.6 cm; Wt 92.6 kg
[~2019-11-03 11:14] MED LIST changes: -ATRIPLA OR
--- NOTE | 2019-11-03 14:32 | NUR ---
Dr. Hayden verbalized permission to start IV in lower ext.
[2019-11-03] MEDS ORDERED: METO50TA27 PO (16:01)
[2019-11-03] MEDS ORDERED: POTASSIUM CHLOR PO (16:06)
[2019-11-03] MEDS ORDERED: TIZA4TAB5 PO (16:11)
[2019-11-03] MEDS ORDERED: CLON1TAB18 PO (16:12)
[2019-11-03] MEDS ORDERED: LEVO0.0218 PO (16:14)
--- NOTE | 2019-11-03 16:14 | NUR ---
CONSENT SIGNED, CONTINUE TO TRY TO DRAW BLOOD FOR LAB FOR TYPE AND CROSS. PATIENT RESTING IN BED CALM. UNABLE TO DRAW BLOOD BACK THROUGH IV SITE. CALLED TO ER FOR ASSISTANCE.
[2019-11-03] MEDS ORDERED: CARAFATE1 GM PO (16:15)
[2019-11-03] MEDS ORDERED: TRELEGY ELLIPTA1 AER INH (16:16)
[2019-11-03] MEDS ORDERED: PROBIOTIC250 MG PO (16:18)
[2019-11-03] MEDS ORDERED: NITR0.4S2 SL (16:18)
[2019-11-03] MEDS ORDERED: PROVENTIL108 MCG/AC INH (16:19)
[2019-11-03] MEDS ORDERED: SPIRIVA HANDIH18 MCG INH (16:20)
[2019-11-03] MEDS ORDERED: PANTOPRAZOLE 40MG TA PO (16:22)
--- NOTE | 2019-11-03 16:34 | NUR ---
DR SOTOMAYOR VISITED CHECKED PATIENT. ASSISTED BY Hazel SILVA RN. BLOOD DRAWN FROM RIGHT FOOT, PT VÍCTOR MCDOWELL.
--- NOTE | 2019-11-03 17:45 | NUR ---
EXPLAINED PROCEDURE TO PATIENT, STARTED FIRST UNIT BLOOD. PATIENT VERBALIZED UNDERSTANDING.
[2019-11-04] VITALS (17 sets, daily range): BP systolic 99–139; BP diastolic 38–63; TEMP 97.7–98.8
--- NOTE | 2019-11-04 08:30 | NUR ---
THIRD UNIT OF BLOOD INFUSED RECIEVED LASIX 20 MG ORDERED PT VÍCTOR WELL UP IN ROOM. STARTED [address] SOTOMAYOR VISITED.
--- NOTE | 2019-11-04 09:43 | NUR ---
RESTING IN BED NO COMPLAINTS VOICED BLOOD 4 TH UNIT INFUSING WITHOUT DIFFICULTY. FINISHED BREAKFAST, NO COMPLAINTS.
--- NOTE | 2019-11-04 10:52 | NUR ---
C/O PEREZ RATED 10 0-10 SCALE. RECIEVED NORCO 1 TAB PO FOR PAINS. BLOOD CONTINUES WITHOUT DIFFICULTY. PATIENT RESTING IN BED HOB UP WATCHING TV.
--- NOTE | 2019-11-04 11:15 | NUR ---
FOURTH UNIT BLOOD INFUSED VÍCTOR WELL RECIEVED MEDS ORDERED. PEREZ RELIEVED. SITTING UP IN BED
--- NOTE | 2019-11-04 13:52 | NUR ---
PATIENT RESTING IN BED WATCHING TV, NO COMPLAINTS VOICED. BLOOD DRAWN FOR REPEAT H&H, BEGAN DISCHARGE. IV REMOVED LEFT FOOT, CATH INTACT NO REDNESS NO SWELLING.
--- NOTE | 2019-11-04 14:32 | NUR ---
REVIEWED DISCHARGED ORDERS AND RX. VERBALIZED UNDERSTANDING. DISCHARGED VIA W/C TO PRIVATE CAR TO GO0 HOME. NO COMPLAINTS.
== END 2019-11-04 14:30 | disposition home or self-care (01) | DRG 977 ==
LOC: MED/SURG 11:14
PROVIDERS: ADMIT Internal Medicine
PROC: 30233N1 Transfusion of Nonautologous Red Blood Cells into Peripheral Vein, Percutaneous Approach (ICD-10-PCS; 2019-11-03)
PROC: 30233N1 Transfusion of Nonautologous Red Blood Cells into Peripheral Vein, Percutaneous Approach (ICD-10-PCS; principal; 2019-11-04)
DX: D50.8 Other iron deficiency anemias (principal); B20 Human immunodeficiency virus [HIV] disease; K92.2 Gastrointestinal hemorrhage, unspecified; J44.9 Chronic obstructive pulmonary disease, unspecified; I11.0 Hypertensive heart disease with heart failure; I50.9 Heart failure, unspecified; G25.81 Restless legs syndrome; E03.8 Other specified hypothyroidism; I48.91 Unspecified atrial fibrillation; K21.9 Gastro-esophageal reflux disease without esophagitis; Z79.01 Long term (current) use of anticoagulants
CPT/HCPCS: 82728; 83540; 84443; 85014; 85018; 86850; 86900; 86901; 86922; J1940; P9016

== ENCOUNTER → 2019-11-12 | Outpatient (CLI) | payer OTHER ==
[~2019-11-12] MED LIST changes: +CLON1TAB18 PO; +LEVO0.0218 PO; +METO50TA27 PO; +PANTOPRAZOLE 40MG TA PO; +POTASSIUM CHLOR PO; +PROBIOTIC250 MG PO; +PROVENTIL108 MCG/AC INH; +SPIRIVA HANDIH18 MCG INH; +TIZA4TAB5 PO; +TRELEGY ELLIPTA1 AER INH
== END ==
LOC: CT 22:40
DX: Z87.891 Personal history of nicotine dependence (principal)

== ENCOUNTER 2019-12-04 19:24 | Emergency (ER) | payer OTHER ==
[~2019-12-04] VITALS: Ht 162.6 cm; Wt 92.5 kg
[2019-12-04 19:30] VITALS: BP 163/58; TEMP 97.8
[2019-12-04 20:02] LABS: PLATELET COUNT 228 K/uL (152-353)
[2019-12-04 20:26] LABS: POTASSIUM 3.4 mmol/L (3.6-5.2)
[2019-12-04 21:58] LABS: PARTIAL THROMBOPLASTIN TIME 31.3 SECONDS (24.5-33.6)
== END 2019-12-04 22:45 | disposition home or self-care (01) ==
LOC: ED 19:24
PROVIDERS: Hospitalist
DX: R10.84 Generalized abdominal pain (principal); R11.2 Nausea with vomiting, unspecified; Z79.01 Long term (current) use of anticoagulants
CPT/HCPCS: 36415; 80053; 80320; 81000; 82150; 83690; 84484; 85027; 85610; 85730; 93005; 96360; 96361; 96365; 96372; 96374; 96375; 96376; 99284; J1170; J2405; Q9963

== ENCOUNTER 2020-01-11 11:39 | Outpatient (CLI) | payer OTHER | END 2020-01-11 21:47 | disposition home or self-care (01) | LOC: LABW 11:39 | DX: Z79.01 Long term (current) use of anticoagulants (principal) | CPT/HCPCS: 36415; 85610 ==

== ENCOUNTER 2020-02-05 02:34 | Outpatient (CLI) | payer OTHER | END 2020-02-05 22:12 | disposition home or self-care (01) | LOC: LAB 02:34 | DX: Z79.01 Long term (current) use of anticoagulants (principal) | CPT/HCPCS: 36415; 85610 ==

== ENCOUNTER 2020-02-29 06:34 | Emergency (ER) | payer OTHER ==
[~2020-02-29] VITALS: Ht 162.6 cm; Wt 102.1 kg
[2020-02-29 07:46] LABS: PLATELET COUNT 290 K/uL (152-353)
[2020-02-29 07:52] LABS: POTASSIUM 3.8 mmol/L (3.6-5.2)
[2020-02-29 08:55] VITALS: BP 142/63; TEMP 100.1
== END 2020-02-29 09:51 | disposition home or self-care (01) ==
LOC: ED 06:34
PROVIDERS: Emergency Medicine Emergency Medical Services
DX: U07.1 COVID-19 (principal)
CPT/HCPCS: 80053; 82550; 83605; 84484; 85027; 85379; 87040; 87502; 87635; 87651; 93005; 96360; 99284; U0003

== ENCOUNTER 2020-03-04 02:49 | Emergency (ER) | payer OTHER ==
[~2020-03-04] VITALS: Ht 162.6 cm; Wt 102.1 kg
[2020-03-04 02:50] VITALS: TEMP 99.5
[2020-03-04 04:02] VITALS: BP 109/56
[2020-03-05] MEDS ORDERED: FURO40TA93 PO (14:40)
[2020-03-05] MEDS ORDERED: NEURONTIN800 MG PO (14:43)
[2020-03-05] MEDS ORDERED: METO-837 PO (14:49)
[2020-03-05] MEDS ORDERED: KLOR-CON SPRIN10 MEQ PO (14:53)
[2020-03-05] MEDS ORDERED: WARF5TAB6 PO (14:55)
[2020-03-05] MEDS ORDERED: SPIR50TA8 PO ×2 (14:58→14:59)
[2020-03-05] MEDS ORDERED: PROM25TA52 PO (15:02)
[2020-03-05] MEDS ORDERED: TEMA30CA18 PO (15:04)
[2020-03-05] MEDS ORDERED: PROVENTIL INH (15:07)
[2020-03-05] MEDS ORDERED: RANI150T78 PO (15:08)
[2020-03-05] MEDS ORDERED: VITAMIN C 500 M1 TAB PO (15:11)
[2020-03-05] MEDS ORDERED: BUMEX2 MG PO (15:13)
[2020-03-05] MEDS ORDERED: CVS SENNA8.6 MG PO (15:16)
[2020-03-05] MEDS ORDERED: DEXILANT PO (15:22)
== END 2020-03-04 04:02 | disposition home or self-care (01) ==
LOC: ED 02:49
DX: S70.02XA Contusion of left hip, initial encounter (principal); W06.XXXA Fall from bed, initial encounter; Y92.89 Other specified places as the place of occurrence of the external cause
CPT/HCPCS: 96372; 99283; J2175

== ENCOUNTER 2020-03-05 08:31 | Inpatient (IN) | payer OTHER ==
[~2020-03-05] VITALS: Ht 162.6 cm; Wt 101.3 kg
[2020-03-05 08:32] VITALS: BP 160/60; TEMP 100.2
[2020-03-05 09:11] LABS: PLATELET COUNT 240 K/uL (152-353)
[2020-03-05 09:15] LABS: POTASSIUM 3.2 mmol/L (3.6-5.2)
[2020-03-05 09:30] VITALS: TEMP 99.6
[2020-03-05 10:15] VITALS: BP 146/71
[2020-03-05 12:07] VITALS: BP 144/52; TEMP 98.9; Ht 162.6 cm; Wt 101.3 kg
[2020-03-05] MEDS ORDERED: FURO40TA93 PO (14:40)
[2020-03-05] MEDS ORDERED: NEURONTIN800 MG PO (14:43)
[2020-03-05] MEDS ORDERED: METO-837 PO (14:49)
[2020-03-05] MEDS ORDERED: KLOR-CON SPRIN10 MEQ PO (14:53)
[2020-03-05] MEDS ORDERED: WARF5TAB6 PO (14:55)
[2020-03-05] MEDS ORDERED: SPIR50TA8 PO ×2 (14:58→14:59)
[2020-03-05] MEDS ORDERED: PROM25TA52 PO (15:02)
[2020-03-05] MEDS ORDERED: TEMA30CA18 PO (15:04)
[2020-03-05] MEDS ORDERED: PROVENTIL INH (15:07)
[2020-03-05] MEDS ORDERED: RANI150T78 PO (15:08)
[2020-03-05] MEDS ORDERED: VITAMIN C 500 M1 TAB PO (15:11)
[2020-03-05] MEDS ORDERED: BUMEX2 MG PO (15:13)
[2020-03-05] MEDS ORDERED: CVS SENNA8.6 MG PO (15:16)
[2020-03-05] MEDS ORDERED: DEXILANT PO (15:22)
[2020-03-05 16:00] VITALS: BP 134/55; TEMP 97.9
[2020-03-05 20:00] VITALS: BP 118/50; TEMP 98.2
[2020-03-06] VITALS (8 sets, daily range): BP systolic 74–132; BP diastolic 32–70; TEMP 97.7–98.5
[2020-03-06 05:21] LABS: PLATELET COUNT 219 K/uL (152-353)
[2020-03-06 05:36] LABS: POTASSIUM 4.2 mmol/L (3.6-5.2)
[2020-03-07] VITALS (27 sets, daily range): BP systolic 91–144; BP diastolic 34–64; TEMP 97.9–100.8
[2020-03-07 12:37] LABS: PLATELET COUNT 269 K/uL (152-353)
[2020-03-07 13:16] LABS: POTASSIUM 3.6 mmol/L (3.6-5.2)
[2020-03-08] VITALS (25 sets, daily range): BP systolic 100–145; BP diastolic 46–74; TEMP 98.4–99.1
[2020-03-08 06:39] LABS: PLATELET COUNT 266 K/uL (152-353)
[2020-03-08 07:01] LABS: POTASSIUM 3.9 mmol/L (3.6-5.2)
[2020-03-09] VITALS (24 sets, daily range): BP systolic 100–147; BP diastolic 42–68; TEMP 97.6–102.3
[2020-03-09 05:41] LABS: PLATELET COUNT 302 K/uL (152-353)
[2020-03-09 06:16] LABS: POTASSIUM 3.1 mmol/L (3.6-5.2)
[2020-03-10] VITALS (21 sets, daily range): BP systolic 101–177; BP diastolic 50–81; TEMP 97.9–101.4
[2020-03-10 05:38] LABS: POTASSIUM 3.6 mmol/L (3.6-5.2)
[2020-03-10 05:53] LABS: PLATELET COUNT 304 K/uL (152-353)
[2020-03-11] VITALS (72 sets, daily range): BP systolic 112–162; BP diastolic 44–76; TEMP 97.7–98.7
[2020-03-11 05:44] LABS: POTASSIUM 3.1 mmol/L (3.6-5.2)
[2020-03-11 05:52] LABS: PLATELET COUNT 225 K/uL (152-353)
[2020-03-12] VITALS (48 sets, daily range): BP systolic 90–159; BP diastolic 42–75; TEMP 98.6–101.7
[2020-03-12 05:53] LABS: PLATELET COUNT 273 K/uL (152-353)
[2020-03-12 06:02] LABS: POTASSIUM 3.9 mmol/L (3.6-5.2)
[2020-03-13] VITALS (12 sets, daily range): BP systolic 90–128; BP diastolic 48–87; TEMP 98.7–99.6
[2020-03-13 00:55] LABS: PLATELET COUNT 282 K/uL (152-353)
[2020-03-13 01:20] LABS: POTASSIUM 4.1 mmol/L (3.6-5.2)
== END 2020-03-13 19:30 | disposition short-term general hospital (02) | DRG 974 ==
LOC: ED 08:31 → MED/SURG 09:52 → ICU 03-07 17:50
PROVIDERS: Internal Medicine; Internal Medicine Endocrinology, Diabetes & Metabolism; ADMIT Emergency Medicine Emergency Medical Services
PROC: 30233K1 Transfusion of Nonautologous Frozen Plasma into Peripheral Vein, Percutaneous Approach (ICD-10-PCS; 2020-03-06)
PROC: 30233N1 Transfusion of Nonautologous Red Blood Cells into Peripheral Vein, Percutaneous Approach (ICD-10-PCS; 2020-03-07)
PROC: 5A1945Z Respiratory Ventilation, 24-96 Consecutive Hours (ICD-10-PCS; principal; 2020-03-08)
PROC: 0BH17EZ Insertion of Endotracheal Airway into Trachea, Via Natural or Artificial Opening (ICD-10-PCS; 2020-03-08)
PROC: 02HV33Z Insertion of Infusion Device into Superior Vena Cava, Percutaneous Approach (ICD-10-PCS; 2020-03-08)
DX: U07.1 COVID-19 (principal); J96.01 Acute respiratory failure with hypoxia; B20 Human immunodeficiency virus [HIV] disease; K92.2 Gastrointestinal hemorrhage, unspecified; E03.8 Other specified hypothyroidism; I48.91 Unspecified atrial fibrillation; D57.3 Sickle-cell trait; D63.8 Anemia in other chronic diseases classified elsewhere; E87.6 Hypokalemia
CPT/HCPCS: 31500; 36415; 36571; 36600; 80053; 80061; 82272; 82728; 82805; 83605; 83615; 83880; 84443; 85007; 85027; 85610; 86140; 86850; 86900; 86901; 86922; 87040; 92950; 94002; 94003; 94640; 94664; 94667; 94668; 94760; 96374; 96375; 99284; C1751; J0132; J0330; J0456; J0696; J1100; J1940; J1956; J2060; J2250; J2270; J2405; J2543; J2704; J2930; J3010; J3490; P9016; P9017; P9047

== ENCOUNTER 2020-05-03 12:35 | Inpatient (IN) | payer OTHER ==
[~2020-05-03] VITALS: Ht 162.6 cm; Wt 94.9 kg
[~2020-05-03 12:35] MED LIST changes: +CVS SENNA8.6 MG PO; +DEXILANT PO; +KLOR-CON SPRIN10 MEQ PO; +PROVENTIL INH; +RANI150T78 PO; +TEMA30CA18 PO; +VITAMIN C 500 M1 TAB PO
[2020-05-03] MEDS ORDERED: AMPICILLIN IV (15:00)
[2020-05-03] MEDS ORDERED: HYDROCODONE BIT1 TA1 PO (15:01)
[2020-05-03] MEDS ORDERED: LIPITOR40 MG PO (15:02)
[2020-05-03] MEDS ORDERED: ALBUTEROL0.083 % INH (15:02)
[2020-05-03] MEDS ORDERED: CEFT2INJ INJ (15:03)
[2020-05-03] MEDS ORDERED: [UNRECOGNIZED DRUG - OTHER] INH (15:16)
[2020-05-03] MEDS ORDERED: NEURONTIN800 MG PO (15:16)
[2020-05-03] MEDS ORDERED: ACIDOPHILU6 PO (15:18)
[2020-05-03] MEDS ORDERED: LEVO0.0218 PO (15:20)
[2020-05-03] MEDS ORDERED: MELATONIN3 M3 PO (15:20)
[2020-05-03] MEDS ORDERED: MIDODRINE5 MG PO (15:21)
[2020-05-03] MEDS ORDERED: PANTOPRAZOLE 40MG TA PO (15:21)
[2020-05-03] MEDS ORDERED: SERTRALINE HYD100 MG PO (15:22)
[2020-05-03] MEDS ORDERED: INCRUSE EL62.5 MCG/I INH (15:23)
[2020-05-03] MEDS ORDERED: WARF1TAB7 PO (15:39)
[2020-05-03 17:40] VITALS: BP 145/67; TEMP 97.7; Ht 162.6 cm; Wt 94.9 kg
[2020-05-03 20:00] VITALS: BP 157/88; TEMP 98.5
[2020-05-04 08:20] VITALS: BP 133/61; TEMP 98.3
[2020-05-04 20:00] VITALS: BP 133/65; TEMP 98
[2020-05-05 08:00] VITALS: BP 126/56; TEMP 98
[2020-05-05 19:47] VITALS: BP 123/45; TEMP 98.6
[2020-05-05 19:57] VITALS: BP 152/74; TEMP 98.6
[2020-05-06 08:00] VITALS: BP 101/65; TEMP 97.4
[2020-05-06 19:45] VITALS: BP 130/52; TEMP 98.7
[2020-05-07 08:00] VITALS: BP 138/68; TEMP 98.1
[2020-05-07 20:00] VITALS: BP 135/64; TEMP 98.1
[2020-05-08 08:00] VITALS: BP 138/81; TEMP 98.2
[2020-05-08 20:00] VITALS: BP 141/71; TEMP 98.6
[2020-05-09 08:00] VITALS: BP 141/62; TEMP 97.7
[2020-05-09 11:32] LABS: POTASSIUM 3.3 mmol/L (3.6-5.2)
[2020-05-09 20:00] VITALS: BP 155/78; TEMP 98.3
[2020-05-10 08:00] VITALS: BP 130/64; TEMP 97.9
[2020-05-10 20:00] VITALS: BP 120/42; TEMP 98.1
[2020-05-11 08:00] VITALS: BP 129/58; TEMP 98.3
[2020-05-11 20:04] VITALS: BP 124/59; TEMP 98.6
[2020-05-12 08:00] VITALS: BP 163/75; TEMP 97.7
[2020-05-12 20:00] VITALS: BP 117/58; TEMP 98.5
[2020-05-13 08:00] VITALS: BP 137/73; TEMP 98.2
[2020-05-13 20:00] VITALS: BP 136/71; TEMP 99.2
[2020-05-14 08:00] VITALS: BP 163/72; TEMP 98.2
[2020-05-14 20:00] VITALS: BP 134/61; TEMP 97.5
[2020-05-15 08:00] VITALS: BP 130/56; TEMP 98.4
[2020-05-15 20:00] VITALS: BP 134/72; TEMP 98.7
[2020-05-16 08:00] VITALS: BP 133/66; TEMP 98.5
[2020-05-16 20:00] VITALS: BP 141/68; TEMP 98.1
[2020-05-17 08:00] VITALS: BP 130/64; TEMP 97.9
[2020-05-17 20:00] VITALS: BP 110/59; TEMP 98.1
[2020-05-18 08:00] VITALS: BP 126/59; TEMP 97.7
[2020-05-18 20:00] VITALS: BP 127/57; TEMP 98.9
[2020-05-19 08:00] VITALS: BP 109/59; TEMP 98.5
[2020-05-19 20:00] VITALS: BP 143/62; TEMP 98.3
[2020-05-20 08:00] VITALS: BP 97/64; TEMP 97.5
[2020-05-20 20:01] VITALS: BP 143/79; TEMP 97.8
[2020-05-21 08:00] VITALS: BP 125/78; TEMP 97.9
[2020-05-21 20:00] VITALS: BP 125/50; TEMP 98.6
[2020-05-22 08:00] VITALS: BP 107/58; TEMP 98
[2020-05-22 20:00] VITALS: BP 130/64; TEMP 98.6
[2020-05-23 08:00] VITALS: BP 111/53; TEMP 98.3
[2020-05-23] MEDS ORDERED: BLOOMIS59 PO (11:20)
== END 2020-05-23 13:40 | disposition home health service (06) | DRG 977 ==
LOC: MED/SURG 12:35
PROVIDERS: Internal Medicine; ADMIT Internal Medicine Endocrinology, Diabetes & Metabolism
DX: R53.1 Weakness (principal); B20 Human immunodeficiency virus [HIV] disease; I38 Endocarditis, valve unspecified; I82.491 Acute embolism and thrombosis of other specified deep vein of right lower extremity; I48.20 Chronic atrial fibrillation, unspecified; R62.7 Adult failure to thrive; Z86.19 Personal history of other infectious and parasitic diseases; J44.9 Chronic obstructive pulmonary disease, unspecified; E03.8 Other specified hypothyroidism; I25.10 Atherosclerotic heart disease of native coronary artery without angina pectoris; I15.8 Other secondary hypertension; B19.20 Unspecified viral hepatitis C without hepatic coma; D57.3 Sickle-cell trait; B95.2 Enterococcus as the cause of diseases classified elsewhere; G62.89 Other specified polyneuropathies; E87.6 Hypokalemia; I50.9 Heart failure, unspecified
CPT/HCPCS: 36415; 36591; 80048; 85610; 87070; 87081; 94760; J0290; J0360; J0696; J1650; J1885; J1940; J2550; J2765

== ENCOUNTER 2020-05-29 09:01 | Outpatient (CLI) | payer OTHER ==
[~2020-05-29 09:01] MED LIST changes: +ACIDOPHILU6 PO; +ALBUTEROL0.083 % INH; +AMPICILLIN IV; +BLOOMIS59 PO; +CEFT2INJ INJ; +HYDROCODONE BIT1 TA1 PO; +INCRUSE EL62.5 MCG/I INH; +LIPITOR40 MG PO; +MELATONIN3 M3 PO; +MIDODRINE5 MG PO; +SERTRALINE HYD100 MG PO; +WARF1TAB7 PO; +[UNRECOGNIZED DRUG - OTHER] INH
[2020-05-29 09:55] LABS: PLATELET COUNT 377 K/uL (152-353)
== END 2020-05-29 23:30 | disposition home or self-care (01) ==
LOC: LABW 09:01
PROVIDERS: Nurse Practitioner Family
DX: B20 Human immunodeficiency virus [HIV] disease (principal); G47.00 Insomnia, unspecified; J44.9 Chronic obstructive pulmonary disease, unspecified; N17.8 Other acute kidney failure; Z79.01 Long term (current) use of anticoagulants; F41.9 Anxiety disorder, unspecified; D64.9 Anemia, unspecified; R06.02 Shortness of breath; R73.09 Other abnormal glucose
CPT/HCPCS: 36415; 80053; 80061; 82607; 82728; 82747; 83036; 83540; 83880; 84439; 84443; 84481; 85027; 85610

== ENCOUNTER 2020-07-31 11:02 | Outpatient (CLI) | payer OTHER | END 2020-07-31 22:09 | disposition home or self-care (01) | LOC: LABW 11:02 | PROVIDERS: ATTEND Nurse Practitioner Family | DX: Z79.01 Long term (current) use of anticoagulants (principal) | CPT/HCPCS: 36415; 85610 ==

== ENCOUNTER 2020-08-09 17:07 | Emergency (ER) | payer OTHER ==
[~2020-08-09] VITALS: Ht 162.6 cm; Wt 94.8 kg
[2020-08-09 17:07] VITALS: TEMP 98.6
[2020-08-09 18:05] LABS: PLATELET COUNT 540 K/uL (152-353)
[2020-08-09 18:28] LABS: POTASSIUM 3.3 mmol/L (3.6-5.2)
[2020-08-09 20:42] VITALS: BP 150/63
== END 2020-08-09 22:01 | disposition home or self-care (01) ==
LOC: ED 17:07
PROVIDERS: Emergency Medicine Emergency Medical Services
DX: A08.39 Other viral enteritis (principal)
CPT/HCPCS: 80053; 83690; 85027; 96360; 96375; 99284; J2405

== ENCOUNTER → 2020-09-05 14:10 | Outpatient (CLI) | payer OTHER | END | disposition home or self-care (01) | LOC: LABW 14:10 | PROVIDERS: ATTEND Nurse Practitioner Family | DX: Z79.01 Long term (current) use of anticoagulants (principal) | CPT/HCPCS: 36415; 85610 ==

== ENCOUNTER 2020-09-18 11:45 | Outpatient (CLI) | payer OTHER | END 2020-09-18 19:41 | disposition home or self-care (01) | LOC: LABW 11:45 | PROVIDERS: ATTEND Nurse Practitioner Family | DX: Z79.01 Long term (current) use of anticoagulants (principal) | CPT/HCPCS: 36415; 85610 ==

== ENCOUNTER 2020-09-20 07:11 | Outpatient (CLI) | payer OTHER | END 2020-09-20 20:01 | disposition home or self-care (01) | LOC: LABW 07:11 | PROVIDERS: ATTEND Internal Medicine | DX: R19.7 Diarrhea, unspecified (principal) | CPT/HCPCS: 82272; 83630; 87015; 87045; 87324; 87328; 87329; 87449; 87899 ==

== ENCOUNTER 2020-09-27 10:14 | Outpatient (CLI) | payer OTHER | END 2020-09-27 21:50 | disposition home or self-care (01) | LOC: LABW 10:14 | PROVIDERS: ATTEND Nurse Practitioner Family | DX: Z79.01 Long term (current) use of anticoagulants (principal) | CPT/HCPCS: 36415; 85610 ==

== ENCOUNTER 2020-10-01 07:22 | Outpatient (CLI) | payer OTHER | END 2020-10-01 19:14 | disposition home or self-care (01) | LOC: LABW 07:22 | PROVIDERS: ATTEND Nurse Practitioner Family | DX: Z79.01 Long term (current) use of anticoagulants (principal) | CPT/HCPCS: 36415; 85610 ==

== ENCOUNTER 2020-10-15 15:09 | Outpatient (CLI) | payer OTHER | END 2020-10-15 20:59 | disposition home or self-care (01) | LOC: LABW 15:09 | PROVIDERS: ATTEND Nurse Practitioner Family | DX: Z79.01 Long term (current) use of anticoagulants (principal) | CPT/HCPCS: 36415; 85610 ==

== ENCOUNTER 2020-10-17 11:14 | Outpatient (CLI) | payer OTHER ==
[2020-10-17 11:58] LABS: PLATELET COUNT 421 K/uL (152-353)
== END 2020-10-17 22:02 | disposition home or self-care (01) ==
LOC: LABW 11:14
PROVIDERS: ATTEND Nurse Practitioner Family
DX: D64.89 Other specified anemias (principal)
CPT/HCPCS: 36415; 85027

== ENCOUNTER 2020-10-17 15:29 | Emergency (ER) | payer OTHER ==
[~2020-10-17] VITALS: Ht 162.6 cm; Wt 94.6 kg
[2020-10-17 15:38] VITALS: TEMP 98.2
[2020-10-17 16:55] LABS: PLATELET COUNT 425 K/uL (152-353)
[2020-10-17 17:22] VITALS: BP 168/74
== END 2020-10-17 17:22 | disposition home or self-care (01) ==
LOC: ED 15:29
PROVIDERS: Family Medicine
DX: D57.3 Sickle-cell trait (principal); D63.8 Anemia in other chronic diseases classified elsewhere
CPT/HCPCS: 85027; 86850; 86900; 86901; 99283

== ENCOUNTER 2020-10-22 09:20 | Outpatient (CLI) | payer OTHER ==
[2020-10-22 17:18] LABS: PLATELET COUNT 334 K/uL (152-353)
== END 2020-10-22 21:34 | disposition home or self-care (01) ==
LOC: MAMMO 09:20 → LAB 09:20 → MAMMO 11:30
PROVIDERS: ATTEND Nurse Practitioner Family
DX: Z12.31 Encounter for screening mammogram for malignant neoplasm of breast (principal); D64.9 Anemia, unspecified
CPT/HCPCS: 36415; 85027

== ENCOUNTER 2020-10-23 07:38 | Outpatient (CLI) | payer OTHER ==
[~2020-10-23] VITALS: Ht 162.6 cm; Wt 94.8 kg
== END 2020-10-23 19:34 | disposition home or self-care (01) ==
LOC: INF 07:38
PROVIDERS: ATTEND Internal Medicine Endocrinology, Diabetes & Metabolism
PROC: 30233N1 Transfusion of Nonautologous Red Blood Cells into Peripheral Vein, Percutaneous Approach (ICD-10-PCS; principal; 2020-10-23)
DX: D63.8 Anemia in other chronic diseases classified elsewhere (principal)
CPT/HCPCS: 36430; 86850; 86900; 86901; 86922; P9016

== ENCOUNTER 2020-10-29 11:44 | Outpatient (CLI) | payer OTHER | END 2020-10-29 19:23 | disposition home or self-care (01) | LOC: LABW 11:44 | PROVIDERS: ATTEND Nurse Practitioner Family | DX: Z79.01 Long term (current) use of anticoagulants (principal) | CPT/HCPCS: 36415; 85610 ==

== ENCOUNTER 2020-11-07 10:52 | Outpatient (CLI) | payer OTHER ==
[2020-11-07 12:36] LABS: PLATELET COUNT 395 K/uL (152-353)
[2020-11-07 12:41] LABS: POTASSIUM 3.9 mmol/L (3.6-5.2)
== END 2020-11-07 21:32 | disposition home or self-care (01) ==
LOC: LAB 10:52
PROVIDERS: ATTEND Internal Medicine Gastroenterology
DX: K92.1 Melena (principal)
CPT/HCPCS: 36415; 80053; 82272; 85027

== ENCOUNTER 2020-11-12 09:41 | Outpatient (CLI) | payer OTHER | END 2020-11-12 19:44 | disposition home or self-care (01) | LOC: LABW 09:41 | PROVIDERS: ATTEND Nurse Practitioner Family | DX: Z79.01 Long term (current) use of anticoagulants (principal) | CPT/HCPCS: 36415; 85610 ==

== ENCOUNTER 2020-11-26 09:35 | Outpatient (CLI) | payer OTHER | END 2020-11-26 19:16 | disposition home or self-care (01) | LOC: LABW 09:35 | PROVIDERS: ATTEND Nurse Practitioner Family | DX: Z79.01 Long term (current) use of anticoagulants (principal) | CPT/HCPCS: 36415; 85610 ==

== ENCOUNTER 2020-11-28 09:59 | Day surgery (SDC) | payer OTHER ==
[~2020-11-28] VITALS: Ht 30.5 cm; Wt 0.5 kg
== END 2020-11-28 12:59 | disposition home or self-care (01) ==
LOC: OR 09:59
PROVIDERS: ATTEND Internal Medicine Gastroenterology
PROC: 0DB68ZZ Excision of Stomach, Via Natural or Artificial Opening Endoscopic (ICD-10-PCS; principal; 2020-11-28)
PROC: 0DB88ZZ Excision of Small Intestine, Via Natural or Artificial Opening Endoscopic (ICD-10-PCS; 2020-11-28)
PROC: 0D738ZZ Dilation of Lower Esophagus, Via Natural or Artificial Opening Endoscopic (ICD-10-PCS; 2020-11-28)
DX: K20.80 Other esophagitis without bleeding (principal); K29.50 Unspecified chronic gastritis without bleeding; K52.89 Other specified noninfective gastroenteritis and colitis; K22.2 Esophageal obstruction; R13.19 Other dysphagia; R10.13 Epigastric pain; R11.2 Nausea with vomiting, unspecified; K92.1 Melena; R19.7 Diarrhea, unspecified; D50.8 Other iron deficiency anemias; Z20.822 Contact with and (suspected) exposure to COVID-19
CPT/HCPCS: 87635; J2001; J2704; U0003

== ENCOUNTER 2020-12-05 07:00 | Outpatient (CLI) | payer OTHER | END 2020-12-05 20:35 | disposition home or self-care (01) | LOC: RESP 07:00 | PROVIDERS: ATTEND Internal Medicine Sleep Medicine | DX: B94.8 Sequelae of other specified infectious and parasitic diseases (principal); E66.01 Morbid (severe) obesity due to excess calories; Z79.01 Long term (current) use of anticoagulants; Z79.899 Other long term (current) drug therapy ==

== ENCOUNTER 2020-12-11 08:57 | Outpatient (CLI) | payer OTHER | END 2020-12-11 19:33 | disposition home or self-care (01) | LOC: LAB 08:57 | PROVIDERS: ATTEND Nurse Practitioner Family | DX: Z79.01 Long term (current) use of anticoagulants (principal) | CPT/HCPCS: 36415; 85610 ==

== ENCOUNTER 2020-12-17 10:20 | Outpatient (CLI) | payer OTHER | END 2020-12-17 20:58 | disposition home or self-care (01) | LOC: LAB 10:20 | PROVIDERS: ATTEND Nurse Practitioner Family | DX: Z79.01 Long term (current) use of anticoagulants (principal) | CPT/HCPCS: 36415; 85610 ==

== ENCOUNTER 2020-12-19 09:56 | Day surgery (SDC) | payer OTHER | END 2020-12-19 13:50 | disposition home or self-care (01) | LOC: OR 09:56 | PROVIDERS: ATTEND Internal Medicine Gastroenterology | PROC: 0D5K8ZZ Destruction of Ascending Colon, Via Natural or Artificial Opening Endoscopic (ICD-10-PCS; principal; 2020-12-19) | PROC: 0W3P8ZZ Control Bleeding in Gastrointestinal Tract, Via Natural or Artificial Opening Endoscopic (ICD-10-PCS; 2020-12-19) | DX: Q27.33 Arteriovenous malformation of digestive system vessel (principal); K64.8 Other hemorrhoids; D50.8 Other iron deficiency anemias; R10.30 Lower abdominal pain, unspecified; K92.1 Melena | CPT/HCPCS: J2704 ==

== ENCOUNTER 2020-12-31 10:08 | Outpatient (CLI) | payer OTHER | END 2020-12-31 21:46 | disposition home or self-care (01) | LOC: LAB 10:08 | PROVIDERS: ATTEND Nurse Practitioner Family | DX: Z79.01 Long term (current) use of anticoagulants (principal) | CPT/HCPCS: 36415; 85610 ==

== ENCOUNTER 2021-01-10 07:30 | Outpatient (CLI) | payer OTHER ==
[2021-01-25 10:05] LABS: PLATELET COUNT 275 K/uL (152-353)
[2021-01-25 10:06] LABS: POTASSIUM 4.2 mmol/L (3.6-5.2)
== END 2021-01-10 16:00 | disposition home or self-care (01) ==
LOC: LABW 07:30
PROVIDERS: ATTEND Nurse Practitioner Family
DX: B20 Human immunodeficiency virus [HIV] disease (principal); G47.00 Insomnia, unspecified; J44.9 Chronic obstructive pulmonary disease, unspecified; F41.9 Anxiety disorder, unspecified; E03.9 Hypothyroidism, unspecified; D64.9 Anemia, unspecified; Z79.01 Long term (current) use of anticoagulants; R73.09 Other abnormal glucose; M25.50 Pain in unspecified joint; I48.91 Unspecified atrial fibrillation
CPT/HCPCS: 36415; 80053; 80061; 82306; 82607; 83036; 84439; 84443; 85027; 85610

== ENCOUNTER 2021-02-04 11:02 | Outpatient (CLI) | payer OTHER ==
[2021-02-04 12:03] LABS: PLATELET COUNT 309 K/uL (152-353)
== END 2021-02-04 21:26 | disposition home or self-care (01) ==
LOC: LABW 11:02
PROVIDERS: ATTEND Nurse Practitioner Family
DX: Z79.01 Long term (current) use of anticoagulants (principal); D64.9 Anemia, unspecified
CPT/HCPCS: 36415; 82728; 82746; 83540; 85027; 85610

== ENCOUNTER 2021-02-19 08:48 | Outpatient (CLI) | payer OTHER | END 2021-02-19 20:34 | disposition home or self-care (01) | LOC: LABW 08:48 | PROVIDERS: ATTEND Nurse Practitioner Family | DX: Z79.01 Long term (current) use of anticoagulants (principal) | CPT/HCPCS: 36415; 85610 ==

== ENCOUNTER 2021-03-07 09:46 | Outpatient (CLI) | payer OTHER ==
[2021-03-07 13:35] LABS: PLATELET COUNT 317 K/uL (152-353)
== END 2021-03-07 22:35 | disposition home or self-care (01) ==
LOC: LAB 09:46
PROVIDERS: ATTEND Nurse Practitioner Family
DX: D64.9 Anemia, unspecified (principal); Z79.01 Long term (current) use of anticoagulants
CPT/HCPCS: 36415; 85027; 85610

== ENCOUNTER 2021-03-21 11:46 | Outpatient (CLI) | payer OTHER | END 2021-03-21 20:17 | disposition home or self-care (01) | LOC: RAD 11:46 | PROVIDERS: ATTEND Nurse Practitioner Family | DX: M79.659 Pain in unspecified thigh (principal) ==

== ENCOUNTER 2021-04-03 12:17 | Outpatient (CLI) | payer OTHER | END 2021-04-03 20:38 | disposition home or self-care (01) | LOC: LABW 12:17 | PROVIDERS: ATTEND Nurse Practitioner Family | DX: Z79.01 Long term (current) use of anticoagulants (principal) | CPT/HCPCS: 36415; 85610 ==

== ENCOUNTER 2021-05-01 08:11 | Outpatient (CLI) | payer OTHER | END 2021-05-01 19:19 | disposition home or self-care (01) | LOC: LAB 08:11 | PROVIDERS: ATTEND Nurse Practitioner Family | DX: Z79.01 Long term (current) use of anticoagulants (principal) | CPT/HCPCS: 36415; 85610 ==

== ENCOUNTER 2021-05-09 10:34 | Outpatient (CLI) | payer OTHER | END 2021-05-09 20:18 | disposition home or self-care (01) | LOC: LABW 10:34 → INF 10:34 → LABW 20:18 | PROVIDERS: ATTEND Nurse Practitioner Family | DX: Z79.01 Long term (current) use of anticoagulants (principal) | CPT/HCPCS: 36415; 85610 ==

== ENCOUNTER 2021-05-29 08:12 | Outpatient (CLI) | payer OTHER | END 2021-05-29 22:34 | disposition home or self-care (01) | LOC: LAB 08:12 | PROVIDERS: ATTEND Nurse Practitioner Family | DX: Z79.01 Long term (current) use of anticoagulants (principal) | CPT/HCPCS: 36415; 85610 ==

== ENCOUNTER 2021-06-03 10:35 | Outpatient (CLI) | payer OTHER | END 2021-06-03 20:23 | disposition home or self-care (01) | LOC: LABW 10:35 | PROVIDERS: ATTEND Nurse Practitioner Family | DX: Z79.01 Long term (current) use of anticoagulants (principal) | CPT/HCPCS: 85610 ==

== ENCOUNTER 2021-06-14 06:52 | Outpatient (CLI) | payer OTHER | END 2021-06-14 20:11 | disposition home or self-care (01) | LOC: CT 06:52 | PROVIDERS: ATTEND Internal Medicine Sleep Medicine | DX: Z09 Encounter for follow-up examination after completed treatment for conditions other than malignant neoplasm (principal); Z87.891 Personal history of nicotine dependence ==

== ENCOUNTER 2021-06-27 07:34 | Outpatient (CLI) | payer OTHER ==
[2021-06-27 07:54] LABS: PLATELET COUNT 275 K/uL (152-353)
[2021-06-27 08:41] LABS: POTASSIUM 4.4 mmol/L (3.6-5.2)
== END 2021-06-27 18:55 | disposition home or self-care (01) ==
LOC: LABW 07:34
PROVIDERS: ATTEND Internal Medicine Cardiovascular Disease
DX: Z79.01 Long term (current) use of anticoagulants (principal); Z79.899 Other long term (current) drug therapy; I50.9 Heart failure, unspecified
CPT/HCPCS: 36415; 80053; 80061; 83880; 84443; 85027; 85610

== ENCOUNTER → 2021-07-08 | Outpatient (CLI) | payer OTHER | LOC: LABW 08:03 | PROVIDERS: ATTEND Nurse Practitioner Family | DX: Z79.01 Long term (current) use of anticoagulants (principal) | CPT/HCPCS: 36415; 85610 ==

== ENCOUNTER 2021-07-22 08:10 | Outpatient (CLI) | payer OTHER | END 2021-07-22 18:51 | disposition home or self-care (01) | LOC: RESP 08:10 | PROVIDERS: ATTEND Internal Medicine Cardiovascular Disease | DX: I48.91 Unspecified atrial fibrillation (principal) ==

== ENCOUNTER 2021-08-21 11:52 | Outpatient (CLI) | payer OTHER | END 2021-08-21 18:54 | disposition home or self-care (01) | LOC: LABW 11:52 | PROVIDERS: ATTEND Nurse Practitioner Family | DX: Z79.01 Long term (current) use of anticoagulants (principal) | CPT/HCPCS: 36415; 85610 ==

== ENCOUNTER 2021-08-26 15:15 | Outpatient (CLI) | payer OTHER | END 2021-08-26 19:09 | disposition home or self-care (01) | LOC: RAD 15:15 | PROVIDERS: ATTEND Nurse Practitioner Family | DX: J44.9 Chronic obstructive pulmonary disease, unspecified (principal); R05.1 Acute cough ==

== ENCOUNTER 2021-09-02 13:52 | Outpatient (CLI) | payer OTHER | END 2021-09-02 19:04 | disposition home or self-care (01) | LOC: LABW 13:52 | PROVIDERS: ATTEND Nurse Practitioner Family | DX: Z79.01 Long term (current) use of anticoagulants (principal) | CPT/HCPCS: 36415; 85610 ==

== ENCOUNTER 2021-09-09 11:15 | Outpatient (CLI) | payer OTHER | END 2021-09-09 19:15 | disposition home or self-care (01) | LOC: LABW 11:15 | PROVIDERS: ATTEND Nurse Practitioner Family | DX: Z79.01 Long term (current) use of anticoagulants (principal) | CPT/HCPCS: 36415; 85610 ==

== ENCOUNTER 2021-09-17 10:59 | Outpatient (CLI) | payer OTHER | END 2021-09-17 18:56 | disposition home or self-care (01) | LOC: LABW 10:59 | PROVIDERS: ATTEND Nurse Practitioner Family | DX: Z79.01 Long term (current) use of anticoagulants (principal) | CPT/HCPCS: 36415; 85610 ==

== ENCOUNTER 2021-09-30 11:11 | Outpatient (CLI) | payer OTHER | END 2021-09-30 19:36 | disposition home or self-care (01) | LOC: EDSTATUS 11:11 → LABW 11:11 | PROVIDERS: ATTEND Nurse Practitioner Family | DX: Z79.01 Long term (current) use of anticoagulants (principal) | CPT/HCPCS: 36415; 85610 ==

== ENCOUNTER 2021-10-03 11:17 | Outpatient (CLI) | payer OTHER ==
[2021-10-03 11:57] LABS: PLATELET COUNT 261 K/uL (152-353)
[2021-10-03 12:09] LABS: POTASSIUM 4.1 mmol/L (3.6-5.2)
== END 2021-10-03 21:06 | disposition home or self-care (01) ==
LOC: LABW 11:17
PROVIDERS: ATTEND Nurse Practitioner Family
DX: R06.09 Other forms of dyspnea (principal)
CPT/HCPCS: 36415; 80048; 83880; 85027

== ENCOUNTER 2021-10-08 14:55 | Outpatient (CLI) | payer OTHER | END 2021-10-08 19:05 | disposition home or self-care (01) | LOC: LAB 14:55 | PROVIDERS: ATTEND Nurse Practitioner Family | DX: Z79.01 Long term (current) use of anticoagulants (principal) | CPT/HCPCS: 36415; 85610 ==

== ENCOUNTER 2021-11-07 08:34 | Outpatient (CLI) | payer OTHER | END 2021-11-07 21:24 | disposition home or self-care (01) | LOC: LABW 08:34 | PROVIDERS: ATTEND Nurse Practitioner Family | DX: Z79.01 Long term (current) use of anticoagulants (principal) | CPT/HCPCS: 36415; 85610 ==

== ENCOUNTER 2021-11-14 13:52 | Outpatient (CLI) | payer OTHER ==
[2021-11-14 14:44] LABS: POTASSIUM 3.8 mmol/L (3.6-5.2)
[2021-11-14 14:45] LABS: PLATELET COUNT 254 K/uL (152-353)
== END 2021-11-14 19:13 | disposition home or self-care (01) ==
LOC: LABW 13:52
PROVIDERS: ATTEND Internal Medicine Endocrinology, Diabetes & Metabolism
DX: N18.32 Chronic kidney disease, stage 3b (principal); D50.9 Iron deficiency anemia, unspecified
CPT/HCPCS: 36415; 80048; 85027

== ENCOUNTER 2021-11-19 13:51 | Outpatient (CLI) | payer OTHER | END 2021-11-19 19:48 | disposition home or self-care (01) | LOC: LABW 13:51 | PROVIDERS: ATTEND Internal Medicine Endocrinology, Diabetes & Metabolism | DX: Z79.01 Long term (current) use of anticoagulants (principal) | CPT/HCPCS: 36415; 85610 ==

== ENCOUNTER 2021-11-27 10:14 | Outpatient (CLI) | payer OTHER ==
[2021-11-27 14:25] LABS: POTASSIUM 3.3 mmol/L (3.6-5.2)
== END 2021-11-27 21:40 | disposition home or self-care (01) ==
LOC: LABW 10:14
PROVIDERS: ATTEND Internal Medicine Cardiovascular Disease
DX: Z79.899 Other long term (current) drug therapy (principal); R06.02 Shortness of breath; Z79.01 Long term (current) use of anticoagulants
CPT/HCPCS: 36415; 80048; 83880; 84443; 85610

== ENCOUNTER 2021-12-04 09:46 | Outpatient (CLI) | payer OTHER | END 2021-12-04 18:52 | disposition home or self-care (01) | LOC: LABW 09:46 | PROVIDERS: ATTEND Internal Medicine Endocrinology, Diabetes & Metabolism | DX: Z79.01 Long term (current) use of anticoagulants (principal) | CPT/HCPCS: 36415; 85610 ==

== ENCOUNTER 2021-12-11 14:38 | Outpatient (CLI) | payer OTHER | END 2021-12-11 19:21 | disposition home or self-care (01) | LOC: RAD 14:38 | PROVIDERS: ATTEND Internal Medicine Endocrinology, Diabetes & Metabolism | DX: S89.92XA Unspecified injury of left lower leg, initial encounter (principal); M25.469 Effusion, unspecified knee; M25.562 Pain in left knee; W19.XXXA Unspecified fall, initial encounter ==

== ENCOUNTER 2021-12-26 13:27 | Inpatient (IN) | payer OTHER ==
[2021-12-26] VITALS (9 sets, daily range): BP systolic 123–164; BP diastolic 45–72; TEMP 98.2–98.9; Ht 162.6 cm; Wt 123.0 kg
[~2021-12-26] VITALS: Ht 162.6 cm; Wt 123.0 kg
[~2021-12-26 13:27] MED LIST changes: +JANTOVEN7.5 MG PO; -WARF1TAB7 PO
[2021-12-26 14:18] LABS: PLATELET COUNT 320 K/uL (152-353)
[2021-12-26 14:58] LABS: PARTIAL THROMBOPLASTIN TIME 32.8 SECONDS (24.5-33.6)
[2021-12-26 14:59] LABS: POTASSIUM 3.3 mmol/L (3.6-5.2)
[2021-12-27] VITALS (16 sets, daily range): BP systolic 95–156; BP diastolic 57–110; TEMP 97.5–98.1
[2021-12-27 13:37] LABS: PLATELET COUNT 336 K/uL (152-353)
[2021-12-27 13:47] LABS: POTASSIUM 4.4 mmol/L (3.6-5.2)
[2021-12-27] MEDS ORDERED: SUCRALFATE1 GM PO (16:02)
[2021-12-27] MEDS ORDERED: CYCLOBENZAPRINE10 MG PO (16:03)
[2021-12-27] MEDS ORDERED: CODEINE/APAP1 TA2 PO (16:03)
[2021-12-27] MEDS ORDERED: ATRIPLA PO (16:04)
[2021-12-27] MEDS ORDERED: CETIRIZINE HYDR10 MG PO (16:08)
[2021-12-27] MEDS ORDERED: QUETIAPINE50 MG PO (16:10)
[2021-12-27] MEDS ORDERED: TRELEGY ELLIPTA1 AER INH (16:17)
[2021-12-27] MEDS ORDERED: TIOTCAP2 INH (16:18)
[2021-12-27] MEDS ORDERED: SPIRONOLACT100 MG PO (16:20)
[2021-12-27] MEDS ORDERED: ENTRESTO 24-261 TAB PO (16:23)
[2021-12-27] MEDS ORDERED: FARXIGA10 MG PO (16:23)
[2021-12-27] MEDS ORDERED: ROPINIROLE0.5 MG PO (16:26)
[2021-12-28 03:47] VITALS: BP 128/50; TEMP 97.7
[2021-12-28 08:00] VITALS: BP 154/72; TEMP 98.2
[2021-12-28 11:37] LABS: POTASSIUM 3.8 mmol/L (3.6-5.2)
[2021-12-28 11:40] LABS: PLATELET COUNT 292 K/uL (152-353)
[2021-12-28 12:00] VITALS: BP 152/69; TEMP 98.5
[2021-12-28] MEDS ORDERED: FERROUS SULF325 MG PO (12:22)
[2021-12-28] MEDS ORDERED: DOCU100C10 PO (12:22)
[2021-12-28] MEDS ORDERED: FOLI1TAB26 PO (12:22)
[2021-12-28] MEDS ORDERED: AZIT250T3 PO (12:23)
[2021-12-28] MEDS ORDERED: MEDROL DOSEPAK4 MG PO (12:28)
== END 2021-12-28 12:58 | disposition home or self-care (01) | DRG 976 ==
LOC: ED 13:27 → MED/SURG 16:00
PROVIDERS: Hospitalist; ADMIT Internal Medicine; ATTEND Internal Medicine
PROC: 30233N1 Transfusion of Nonautologous Red Blood Cells into Peripheral Vein, Percutaneous Approach (ICD-10-PCS; principal; 2021-12-27)
DX: J18.8 Other pneumonia, unspecified organism (principal); B20 Human immunodeficiency virus [HIV] disease; D64.89 Other specified anemias; Z99.81 Dependence on supplemental oxygen; J44.9 Chronic obstructive pulmonary disease, unspecified; E03.8 Other specified hypothyroidism; I50.9 Heart failure, unspecified; Z95.4 Presence of other heart-valve replacement; E87.6 Hypokalemia
CPT/HCPCS: 36600; 80048; 80053; 82272; 82550; 82607; 82728; 82746; 82805; 83540; 83605; 83880; 84443; 84484; 85027; 85044; 85610; 85730; 86850; 86900; 86901; 86922; 87040; 87635; 93005; 94664; 96365; 96375; 99284; J0456; J0696; J1200; J1940; J2270; J2405; J2916; J2930; P9016; U0003

== ENCOUNTER 2022-01-09 10:22 | Emergency (ER) | payer OTHER ==
[~2022-01-09] VITALS: Ht 162.6 cm; Wt 122.9 kg
[2022-01-09 10:22] VITALS: BP 117/59; TEMP 98.9
[~2022-01-09 10:22] MED LIST changes: +AZIT250T3 PO; +CETIRIZINE HYDR10 MG PO; +CODEINE/APAP1 TA2 PO; +CYCLOBENZAPRINE10 MG PO; +ENTRESTO 24-261 TAB PO; +FARXIGA10 MG PO; +FOLI1TAB26 PO; +MEDROL DOSEPAK4 MG PO; +QUETIAPINE50 MG PO; +SPIRONOLACT100 MG PO; +TIOTCAP2 INH
[2022-01-09 11:02] LABS: PLATELET COUNT 259 K/uL (152-353)
[2022-01-09 11:10] LABS: POTASSIUM 4.8 mmol/L (3.6-5.2)
== END 2022-01-09 13:23 | disposition short-term general hospital (02) ==
LOC: ED 10:22
PROVIDERS: Emergency Medicine
PROC: 30233N1 Transfusion of Nonautologous Red Blood Cells into Peripheral Vein, Percutaneous Approach (ICD-10-PCS; principal; 2022-01-09)
DX: D68.32 Hemorrhagic disorder due to extrinsic circulating anticoagulants (principal); K92.1 Melena; Z95.2 Presence of prosthetic heart valve; Z79.01 Long term (current) use of anticoagulants; T45.515A Adverse effect of anticoagulants, initial encounter; X58.XXXA Exposure to other specified factors, initial encounter; Y92.89 Other specified places as the place of occurrence of the external cause
CPT/HCPCS: 36430; 80053; 84484; 85027; 85610; 86850; 86900; 86901; 86922; 93005; 96360; 96365; 96372; 96375; 99285; J1885; J2270; J2405; J3430; J3490; P9016

== ENCOUNTER 2022-01-20 15:13 | Outpatient (CLI) | payer OTHER | END 2022-01-20 19:52 | disposition home or self-care (01) | LOC: LABW 15:13 | PROVIDERS: ATTEND Internal Medicine Endocrinology, Diabetes & Metabolism | DX: Z79.01 Long term (current) use of anticoagulants (principal) | CPT/HCPCS: 36415; 85610 ==

== ENCOUNTER 2022-01-28 12:34 | Outpatient (CLI) | payer OTHER | END 2022-01-28 18:54 | disposition home or self-care (01) | LOC: LABW 12:34 | PROVIDERS: ATTEND Internal Medicine Endocrinology, Diabetes & Metabolism | DX: Z79.01 Long term (current) use of anticoagulants (principal) | CPT/HCPCS: 36415; 85610 ==

== ENCOUNTER 2022-02-05 08:18 | Outpatient (CLI) | payer OTHER | END 2022-02-05 18:52 | disposition home or self-care (01) | LOC: LABW 08:18 | PROVIDERS: ATTEND Internal Medicine Endocrinology, Diabetes & Metabolism | DX: Z79.01 Long term (current) use of anticoagulants (principal) | CPT/HCPCS: 36415; 85610 ==

== ENCOUNTER 2022-02-17 13:45 | Outpatient (CLI) | payer OTHER | END 2022-02-17 19:13 | disposition home or self-care (01) | LOC: LABW 13:45 | PROVIDERS: ATTEND Internal Medicine Endocrinology, Diabetes & Metabolism | DX: Z79.01 Long term (current) use of anticoagulants (principal) | CPT/HCPCS: 36415; 85610 ==

== ENCOUNTER 2022-02-25 14:32 | Outpatient (CLI) | payer OTHER | END 2022-02-25 19:10 | disposition home or self-care (01) | LOC: LABW 14:32 | PROVIDERS: ATTEND Internal Medicine Endocrinology, Diabetes & Metabolism | DX: Z79.01 Long term (current) use of anticoagulants (principal) | CPT/HCPCS: 36415; 85610 ==

== ENCOUNTER 2022-03-05 13:12 | Outpatient (CLI) | payer OTHER | END 2022-03-05 19:25 | disposition home or self-care (01) | LOC: LABW 13:12 | PROVIDERS: ATTEND Internal Medicine Endocrinology, Diabetes & Metabolism | DX: Z79.01 Long term (current) use of anticoagulants (principal) | CPT/HCPCS: 36415; 85610 ==

== ENCOUNTER 2022-03-13 09:15 | Outpatient (CLI) | payer OTHER | END 2022-03-13 21:19 | disposition home or self-care (01) | LOC: LABW 09:15 | PROVIDERS: ATTEND Internal Medicine Endocrinology, Diabetes & Metabolism | DX: Z79.01 Long term (current) use of anticoagulants (principal) | CPT/HCPCS: 36415; 85610 ==

== ENCOUNTER 2022-03-19 09:38 | Outpatient (CLI) | payer OTHER | END 2022-03-19 19:36 | disposition home or self-care (01) | LOC: LABW 09:38 | PROVIDERS: ATTEND Internal Medicine Endocrinology, Diabetes & Metabolism | DX: Z79.01 Long term (current) use of anticoagulants (principal) | CPT/HCPCS: 36415; 85610 ==

== ENCOUNTER 2022-03-26 09:42 | Outpatient (CLI) | payer OTHER | END 2022-03-26 18:57 | disposition home or self-care (01) | LOC: LABW 09:42 | PROVIDERS: ATTEND Internal Medicine Endocrinology, Diabetes & Metabolism | DX: Z79.01 Long term (current) use of anticoagulants (principal) | CPT/HCPCS: 36415; 85610 ==

== ENCOUNTER 2022-04-02 13:27 | Outpatient (CLI) | payer OTHER | END 2022-04-02 19:10 | disposition home or self-care (01) | LOC: LABW 13:27 | PROVIDERS: ATTEND Internal Medicine Endocrinology, Diabetes & Metabolism | DX: Z79.01 Long term (current) use of anticoagulants (principal) | CPT/HCPCS: 36415; 85610 ==

== ENCOUNTER 2022-04-09 11:02 | Outpatient (CLI) | payer OTHER ==
[2022-04-09 14:07] LABS: PLATELET COUNT 379 K/uL (152-353)
== END 2022-04-09 18:49 | disposition home or self-care (01) ==
LOC: LABW 11:02
PROVIDERS: ATTEND Internal Medicine Endocrinology, Diabetes & Metabolism
DX: Z79.01 Long term (current) use of anticoagulants (principal); R53.83 Other fatigue
CPT/HCPCS: 36415; 85027; 85610

== ENCOUNTER 2022-04-15 08:29 | Outpatient (CLI) | payer OTHER ==
[2022-04-15 10:53] LABS: PLATELET COUNT 499 K/uL (152-353)
== END 2022-04-15 20:19 | disposition home or self-care (01) ==
LOC: LABW 08:29 → MRI 14:00 → LABW 20:19
PROVIDERS: ATTEND Orthopaedic Surgery
DX: M25.552 Pain in left hip (principal); M16.12 Unilateral primary osteoarthritis, left hip; S76.002A Unspecified injury of muscle, fascia and tendon of left hip, initial encounter; M76.12 Psoas tendinitis, left hip; Y92.89 Other specified places as the place of occurrence of the external cause; Z79.01 Long term (current) use of anticoagulants; R53.83 Other fatigue; D50.8 Other iron deficiency anemias
CPT/HCPCS: 36415; 85027; 85610

== ENCOUNTER 2022-04-19 07:42 | Outpatient (CLI) | payer OTHER ==
[2022-04-18 15:10] LABS: PLATELET COUNT 545 K/uL (152-353)
[2022-04-19] VITALS (10 sets, daily range): BP systolic 122–156; BP diastolic 57–67; TEMP 97.7–98.5
== END 2022-04-19 19:20 | disposition home or self-care (01) ==
LOC: INF 07:42
PROVIDERS: ATTEND Internal Medicine
DX: D64.9 Anemia, unspecified (principal)
CPT/HCPCS: 36415; 36430; 85027; 86850; 86900; 86901; 86922; P9016

== ENCOUNTER 2022-04-23 07:31 | Outpatient (CLI) | payer OTHER ==
[2022-04-23 07:59] LABS: PLATELET COUNT 406 K/uL (152-353)
== END 2022-04-23 23:20 | disposition home or self-care (01) ==
LOC: LABW 07:31
PROVIDERS: ATTEND Internal Medicine Endocrinology, Diabetes & Metabolism
DX: N18.32 Chronic kidney disease, stage 3b (principal); D50.8 Other iron deficiency anemias; Z79.01 Long term (current) use of anticoagulants
CPT/HCPCS: 36415; 80048; 85027; 85610

== ENCOUNTER 2022-04-30 08:50 | Outpatient (CLI) | payer OTHER | END 2022-04-30 19:09 | disposition home or self-care (01) | LOC: LABW 08:50 | PROVIDERS: ATTEND Internal Medicine Endocrinology, Diabetes & Metabolism | DX: Z79.01 Long term (current) use of anticoagulants (principal) | CPT/HCPCS: 36415; 85610 ==

== ENCOUNTER 2022-05-07 07:39 | Outpatient (CLI) | payer OTHER | END 2022-05-07 19:27 | disposition home or self-care (01) | LOC: LABW 07:39 | PROVIDERS: ATTEND Internal Medicine Endocrinology, Diabetes & Metabolism | DX: Z79.01 Long term (current) use of anticoagulants (principal) | CPT/HCPCS: 85610 ==

== ENCOUNTER 2022-05-14 10:55 | Outpatient (CLI) | payer OTHER | END 2022-05-14 21:19 | disposition home or self-care (01) | LOC: LABW 10:55 | PROVIDERS: ATTEND Internal Medicine Endocrinology, Diabetes & Metabolism | DX: Z79.01 Long term (current) use of anticoagulants (principal) | CPT/HCPCS: 36415; 85610 ==

== ENCOUNTER 2022-05-21 14:38 | Outpatient (CLI) | payer OTHER | END 2022-05-21 19:01 | disposition home or self-care (01) | LOC: LABW 14:38 | PROVIDERS: ATTEND Internal Medicine Endocrinology, Diabetes & Metabolism | DX: Z79.01 Long term (current) use of anticoagulants (principal) | CPT/HCPCS: 36415; 85610 ==

== ENCOUNTER → 2022-05-27 | Outpatient (CLI) | payer OTHER | LOC: RAD 08:21 | PROVIDERS: ATTEND Internal Medicine Endocrinology, Diabetes & Metabolism | DX: M81.0 Age-related osteoporosis without current pathological fracture (principal) ==

== ENCOUNTER 2022-05-30 10:07 | Outpatient (CLI) | payer OTHER | END 2022-05-30 19:05 | disposition home or self-care (01) | LOC: LABW 10:07 | PROVIDERS: ATTEND Internal Medicine Endocrinology, Diabetes & Metabolism | DX: Z79.01 Long term (current) use of anticoagulants (principal) | CPT/HCPCS: 36415; 85610 ==

== ENCOUNTER 2022-06-11 07:36 | Outpatient (CLI) | payer OTHER | END 2022-06-11 23:55 | disposition home or self-care (01) | LOC: LABW 07:36 | PROVIDERS: ATTEND Internal Medicine Endocrinology, Diabetes & Metabolism | DX: Z79.01 Long term (current) use of anticoagulants (principal) | CPT/HCPCS: 36415; 85610 ==

== ENCOUNTER 2022-06-17 10:26 | Outpatient (CLI) | payer OTHER | END 2022-06-17 20:12 | disposition home or self-care (01) | LOC: LABW 10:26 | PROVIDERS: ATTEND Internal Medicine Endocrinology, Diabetes & Metabolism | DX: Z79.01 Long term (current) use of anticoagulants (principal) | CPT/HCPCS: 36415; 85610 ==

== ENCOUNTER 2022-06-25 14:57 | Outpatient (CLI) | payer OTHER | END 2022-06-25 19:42 | disposition home or self-care (01) | LOC: LABW 14:57 | PROVIDERS: ATTEND Internal Medicine Endocrinology, Diabetes & Metabolism | DX: Z79.01 Long term (current) use of anticoagulants (principal) | CPT/HCPCS: 36415; 85610 ==

== ENCOUNTER 2022-07-09 12:31 | Outpatient (CLI) | payer OTHER | END 2022-07-09 19:04 | disposition home or self-care (01) | LOC: LABW 12:31 | PROVIDERS: ATTEND Internal Medicine Endocrinology, Diabetes & Metabolism | DX: Z79.01 Long term (current) use of anticoagulants (principal) | CPT/HCPCS: 36415; 85610 ==

== ENCOUNTER 2022-07-16 07:18 | Outpatient (CLI) | payer OTHER | END 2022-07-16 20:12 | disposition home or self-care (01) | LOC: LABW 07:18 | PROVIDERS: ATTEND Internal Medicine Endocrinology, Diabetes & Metabolism | DX: Z79.01 Long term (current) use of anticoagulants (principal) | CPT/HCPCS: 36415; 85610 ==

== ENCOUNTER 2022-08-06 13:21 | Outpatient (CLI) | payer OTHER | END 2022-08-06 19:35 | disposition home or self-care (01) | LOC: LABW 13:21 | PROVIDERS: ATTEND Internal Medicine Endocrinology, Diabetes & Metabolism | DX: Z79.01 Long term (current) use of anticoagulants (principal) | CPT/HCPCS: 36415; 85610 ==

== ENCOUNTER 2022-08-07 13:44 | Outpatient (CLI) | payer OTHER | END 2022-08-07 19:00 | disposition home or self-care (01) | LOC: RAD 13:44 | PROVIDERS: ATTEND Internal Medicine Endocrinology, Diabetes & Metabolism | DX: J44.9 Chronic obstructive pulmonary disease, unspecified (principal); R05.3 Chronic cough ==

== ENCOUNTER 2022-08-21 08:39 | Outpatient (CLI) | payer OTHER | END 2022-08-21 19:37 | disposition home or self-care (01) | LOC: LABW 08:39 | PROVIDERS: ATTEND Internal Medicine Endocrinology, Diabetes & Metabolism | DX: Z79.01 Long term (current) use of anticoagulants (principal) | CPT/HCPCS: 36415; 85610 ==

== ENCOUNTER 2022-08-29 07:54 | Outpatient (CLI) | payer OTHER | END 2022-08-29 19:48 | disposition home or self-care (01) | LOC: LABW 07:54 | PROVIDERS: ATTEND Internal Medicine Endocrinology, Diabetes & Metabolism | DX: Z79.01 Long term (current) use of anticoagulants (principal) | CPT/HCPCS: 36415; 85610 ==

== ENCOUNTER 2022-09-15 14:10 | Outpatient (CLI) | payer OTHER ==
[2022-09-15 15:15] LABS: PLATELET COUNT 282 K/uL (152-353)
== END 2022-09-15 21:52 | disposition home or self-care (01) ==
LOC: LABW 14:10
PROVIDERS: ATTEND Internal Medicine Endocrinology, Diabetes & Metabolism
DX: D64.89 Other specified anemias (principal); Z79.01 Long term (current) use of anticoagulants
CPT/HCPCS: 36415; 85027; 85610

== ENCOUNTER 2022-09-16 12:05 | Outpatient (CLI) | payer OTHER ==
[2022-09-16 12:57] LABS: POTASSIUM 4.5 mmol/L (3.6-5.2)
== END 2022-09-16 22:03 | disposition home or self-care (01) ==
LOC: LABW 12:05
PROVIDERS: ATTEND Internal Medicine Endocrinology, Diabetes & Metabolism
DX: I50.32 Chronic diastolic (congestive) heart failure (principal); N18.32 Chronic kidney disease, stage 3b
CPT/HCPCS: 36415; 80048; 83880

== ENCOUNTER 2022-09-21 18:15 | Inpatient (IN) | payer OTHER ==
[~2022-09-21] VITALS: Ht 162.6 cm; Wt 127.2 kg
[2022-09-21 18:15] VITALS: BP 123/36; TEMP 99.6
[~2022-09-21 18:15] MED LIST changes: +JANTOVEN5 MG PO; -JANTOVEN7.5 MG PO
[2022-09-21 19:00] VITALS: BP 143/59
[2022-09-21 19:45] VITALS: BP 125/41
[2022-09-21 20:02] LABS: PLATELET COUNT 278 K/uL (152-353)
[2022-09-21 20:16] VITALS: BP 104/41
[2022-09-21 22:05] VITALS: BP 135/70; TEMP 98.4; Ht 162.6 cm; Wt 127.2 kg
[2022-09-22 08:00] VITALS: BP 133/73; TEMP 98.3
[2022-09-22] MEDS ORDERED: ALBUTEROL108 MCG/AC INH (10:04)
[2022-09-22] MEDS ORDERED: NORCO 10/325***1 TAB PO (10:05)
[2022-09-22] MEDS ORDERED: XYZAL ALLERGY 245 MG PO (10:05)
[2022-09-22 12:00] VITALS: BP 125/58; TEMP 97.9
[2022-09-22 16:00] VITALS: BP 145/53; TEMP 98.1
[2022-09-22 19:49] VITALS: BP 120/57; TEMP 98.3
[2022-09-22 23:43] VITALS: BP 131/65; TEMP 97.6
[2022-09-23 03:36] VITALS: BP 133/77; TEMP 97.7
[2022-09-23 05:47] LABS: PLATELET COUNT 276 K/uL (152-353)
[2022-09-23 06:06] LABS: POTASSIUM 4.8 mmol/L (3.6-5.2)
[2022-09-23 12:00] VITALS: BP 134/63; TEMP 97.8
[2022-09-23 16:00] VITALS: BP 136/51; TEMP 97.9
[2022-09-23 19:37] VITALS: BP 135/59; TEMP 97.4
[2022-09-23 23:33] VITALS: BP 117/63; TEMP 98.1
[2022-09-24 03:33] VITALS: BP 124/74; TEMP 97.5
[2022-09-24 08:38] LABS: PLATELET COUNT 308 K/uL (152-353)
[2022-09-24] MEDS ORDERED: CODELIQ8 PO (08:41)
[2022-09-24] MEDS ORDERED: CEFD300C2 PO (08:42)
[2022-09-24] MEDS ORDERED: PRED20TA27 PO (08:43)
[2022-09-24 08:44] LABS: POTASSIUM 3.8 mmol/L (3.6-5.2)
== END 2022-09-24 10:30 | disposition home or self-care (01) | DRG 190 ==
LOC: ED 18:26 → MED/SURG 21:06
PROVIDERS: ADMIT Internal Medicine; ATTEND Internal Medicine
DX: J44.1 Chronic obstructive pulmonary disease with (acute) exacerbation (principal); I50.23 Acute on chronic systolic (congestive) heart failure; B20 Human immunodeficiency virus [HIV] disease; Z99.81 Dependence on supplemental oxygen; F32.A Depression, unspecified; K21.9 Gastro-esophageal reflux disease without esophagitis; E03.8 Other specified hypothyroidism; D64.89 Other specified anemias; I11.0 Hypertensive heart disease with heart failure; I25.111 Atherosclerotic heart disease of native coronary artery with angina pectoris with documented spasm; E11.65 Type 2 diabetes mellitus with hyperglycemia
CPT/HCPCS: 36415; 80048; 80053; 83880; 84145; 85027; 85610; 87502; 87635; 94664; 94667; 94668; 94760; 96365; 96375; 99284; J0456; J0696; J1815; J2930; J3370; U0003

== ENCOUNTER 2022-09-28 13:57 | Inpatient (IN) | payer OTHER ==
[2022-09-28] VITALS (7 sets, daily range): BP systolic 143–189; BP diastolic 41–86; TEMP 98.2–99.3; Ht 162.6 cm; Wt 123.2 kg
[~2022-09-28] VITALS: Ht 162.6 cm; Wt 123.2 kg
[~2022-09-28 13:57] MED LIST changes: +ALBUTEROL108 MCG/AC INH; +CEFD300C2 PO; +CODELIQ8 PO; +NORCO 10/325***1 TAB PO; +PRED20TA27 PO; +XYZAL ALLERGY 245 MG PO
[2022-09-28 14:58] LABS: PLATELET COUNT 234 K/uL (152-353)
[2022-09-28 15:04] LABS: POTASSIUM 3.8 mmol/L (3.6-5.2)
[2022-09-28 16:26] LABS: PARTIAL THROMBOPLASTIN TIME 22.5 SECONDS (24.5-33.6)
[2022-09-29 03:54] VITALS: BP 134/56; TEMP 97.5
[2022-09-29 05:40] LABS: PLATELET COUNT 332 K/uL (152-353)
[2022-09-29 05:59] LABS: POTASSIUM 3.4 mmol/L (3.6-5.2)
[2022-09-29 08:00] VITALS: BP 125/64; TEMP 97.6
[2022-09-29] MEDS ORDERED: BUMETANIDE2 MG PO (09:16)
[2022-09-29] MEDS ORDERED: FUROSEMIDE80 MG PO (09:17)
[2022-09-29] MEDS ORDERED: NITR0.4S2 SL (09:18)
[2022-09-29 11:48] VITALS: BP 105/54; TEMP 98.3
[2022-09-29 16:00] VITALS: BP 127/64; TEMP 98.3
[2022-09-29 20:00] VITALS: BP 160/61; TEMP 98
[2022-09-30] VITALS: BP 127/58; TEMP 98
[2022-09-30 04:00] VITALS: BP 105/37; TEMP 98
[2022-09-30 05:42] LABS: PLATELET COUNT 350 K/uL (152-353)
[2022-09-30 06:04] LABS: POTASSIUM 2.8 mmol/L (3.6-5.2)
[2022-09-30 08:00] VITALS: BP 136/51; TEMP 97.7
[2022-09-30 12:00] VITALS: BP 150/57
[2022-09-30 16:00] VITALS: BP 136/60; TEMP 97.7
[2022-09-30 20:00] VITALS: BP 148/62; TEMP 98.2
[2022-10-01] VITALS (7 sets, daily range): BP systolic 126–174; BP diastolic 55–72; TEMP 97.9–98.7
[2022-10-02 03:35] VITALS: BP 144/66; TEMP 98
[2022-10-02 07:50] LABS: PLATELET COUNT 436 K/uL (152-353)
[2022-10-02 07:57] LABS: POTASSIUM 3.8 mmol/L (3.6-5.2)
[2022-10-02 08:00] VITALS: BP 146/69; TEMP 98.5
[2022-10-02 12:00] VITALS: BP 148/75; TEMP 98.2
[2022-10-02] MEDS ORDERED: PRED10TA27 PO (14:11)
[2022-10-02] MEDS ORDERED: AZIT250T3 PO (14:12)
== END 2022-10-02 15:04 | disposition home or self-care (01) | DRG 190 ==
LOC: ED 13:57 → MED/SURG 15:20
PROVIDERS: Internal Medicine; ADMIT Family Medicine; ATTEND Internal Medicine
DX: J44.0 Chronic obstructive pulmonary disease with (acute) lower respiratory infection (principal); I50.23 Acute on chronic systolic (congestive) heart failure; J18.8 Other pneumonia, unspecified organism; B20 Human immunodeficiency virus [HIV] disease; J44.1 Chronic obstructive pulmonary disease with (acute) exacerbation; F32.A Depression, unspecified; E03.8 Other specified hypothyroidism; D57.3 Sickle-cell trait; K21.9 Gastro-esophageal reflux disease without esophagitis; I25.10 Atherosclerotic heart disease of native coronary artery without angina pectoris; Z95.4 Presence of other heart-valve replacement; I11.0 Hypertensive heart disease with heart failure
CPT/HCPCS: 36415; 36600; 80053; 80202; 81002; 82805; 83605; 83735; 83880; 84484; 85027; 85379; 85610; 85730; 87040; 87502; 87635; 94664; 94760; 96365; 96367; 96375; 99284; J0456; J0696; J1650; J2270; J2930; J3370; J3475; U0003

== ENCOUNTER 2022-10-09 14:57 | Outpatient (CLI) | payer OTHER ==
[~2022-10-09 14:57] MED LIST changes: +BUMETANIDE2 MG PO; +FUROSEMIDE80 MG PO; +PRED10TA27 PO
== END 2022-10-09 19:39 | disposition home or self-care (01) ==
LOC: LABW 14:57
PROVIDERS: ATTEND Internal Medicine Endocrinology, Diabetes & Metabolism
DX: Z79.01 Long term (current) use of anticoagulants (principal)
CPT/HCPCS: 36415; 85610

== ENCOUNTER 2022-10-13 08:32 | Outpatient (CLI) | payer OTHER | END 2022-10-13 21:24 | disposition home or self-care (01) | LOC: LABW 08:32 | PROVIDERS: ATTEND Internal Medicine Endocrinology, Diabetes & Metabolism | DX: Z79.01 Long term (current) use of anticoagulants (principal) | CPT/HCPCS: 36415; 85610 ==

== ENCOUNTER → 2022-10-23 | Outpatient (CLI) | payer OTHER | LOC: LABW 13:56 | PROVIDERS: ATTEND Internal Medicine Endocrinology, Diabetes & Metabolism | DX: Z79.01 Long term (current) use of anticoagulants (principal) | CPT/HCPCS: 36415; 85610 ==

== ENCOUNTER 2022-10-27 12:06 | Outpatient (CLI) | payer OTHER ==
[2022-10-27 13:49] LABS: PLATELET COUNT 299 K/uL (152-353)
== END 2022-10-27 20:32 | disposition still patient (30) ==
LOC: LABW 12:06
PROVIDERS: ATTEND Internal Medicine Endocrinology, Diabetes & Metabolism
DX: I50.32 Chronic diastolic (congestive) heart failure (principal); N18.32 Chronic kidney disease, stage 3b; D50.8 Other iron deficiency anemias; Z79.01 Long term (current) use of anticoagulants; Z95.2 Presence of prosthetic heart valve
CPT/HCPCS: 36415; 85008; 85027; 85610

== ENCOUNTER 2022-10-27 17:01 | Emergency (ER) | payer OTHER ==
[~2022-10-27] VITALS: Ht 162.6 cm; Wt 111.6 kg
[2022-10-27 17:56] LABS: PLATELET COUNT 279 K/uL (152-353)
[2022-10-27 18:05] LABS: POTASSIUM 4.2 mmol/L (3.6-5.2)
[2022-10-27 22:00] VITALS: BP 116/53; TEMP 98.9
== END 2022-10-27 22:00 | disposition short-term general hospital (02) ==
LOC: ED 17:01
PROVIDERS: Emergency Medicine Emergency Medical Services
PROC: 30233N1 Transfusion of Nonautologous Red Blood Cells into Peripheral Vein, Percutaneous Approach (ICD-10-PCS; principal; 2022-10-27)
DX: K92.2 Gastrointestinal hemorrhage, unspecified (principal); D64.89 Other specified anemias
CPT/HCPCS: 36430; 80053; 82272; 83880; 84484; 85027; 85610; 86850; 86900; 86901; 86922; 93005; 96361; 96372; 96374; 96375; 96376; 99284; J1940; J2270; J2405; J3430; P9016

== ENCOUNTER 2022-11-03 14:23 | Outpatient (CLI) | payer OTHER ==
[2022-11-03 14:49] LABS: PLATELET COUNT 343 K/uL (152-353)
== END 2022-11-03 19:05 | disposition home or self-care (01) ==
LOC: LABW 14:23
PROVIDERS: ATTEND Internal Medicine Endocrinology, Diabetes & Metabolism
DX: I50.32 Chronic diastolic (congestive) heart failure (principal); D50.8 Other iron deficiency anemias; N18.32 Chronic kidney disease, stage 3b; Z95.2 Presence of prosthetic heart valve; Z79.891 Long term (current) use of opiate analgesic; Z79.01 Long term (current) use of anticoagulants
CPT/HCPCS: 36415; 85027; 85610

== ENCOUNTER 2022-11-06 14:03 | Outpatient (CLI) | payer OTHER | END 2022-11-06 20:51 | disposition home or self-care (01) | LOC: RAD 14:03 | PROVIDERS: ATTEND Internal Medicine Endocrinology, Diabetes & Metabolism | DX: M79.652 Pain in left thigh (principal); W01.0XXA Fall on same level from slipping, tripping and stumbling without subsequent striking against object, initial encounter ==

== ENCOUNTER 2022-11-10 12:41 | Outpatient (CLI) | payer OTHER ==
[2022-11-10 13:18] LABS: PLATELET COUNT 422 K/uL (152-353)
== END 2022-11-10 21:22 ==
LOC: LABW 12:41
PROVIDERS: ATTEND Internal Medicine Endocrinology, Diabetes & Metabolism
DX: D50.8 Other iron deficiency anemias (principal); I50.32 Chronic diastolic (congestive) heart failure; Z79.01 Long term (current) use of anticoagulants
CPT/HCPCS: 36415; 85027; 85610

== ENCOUNTER 2022-11-11 12:37 | Outpatient (CLI) | payer OTHER ==
[2022-11-11] VITALS (8 sets, daily range): BP systolic 144–154; BP diastolic 56–89; TEMP 98–98.4
[~2022-11-11] VITALS: Ht 162.6 cm; Wt 122.5 kg
== END 2022-11-11 21:00 ==
LOC: INF 12:37
PROVIDERS: ATTEND Internal Medicine
DX: D50.8 Other iron deficiency anemias (principal)
CPT/HCPCS: 36415; 36430; 86850; 86900; 86901; 86922; P9016

== ENCOUNTER 2022-11-12 12:23 | Outpatient (CLI) | payer OTHER ==
[2022-11-12 12:38] LABS: PLATELET COUNT 385 K/uL (152-353)
== END 2022-11-12 19:33 | disposition home or self-care (01) ==
LOC: LABW 12:23
PROVIDERS: ATTEND Internal Medicine Endocrinology, Diabetes & Metabolism
DX: D50.8 Other iron deficiency anemias (principal)
CPT/HCPCS: 36415; 85027

== ENCOUNTER 2022-11-13 10:28 | Outpatient (CLI) | payer OTHER | END 2022-11-13 17:00 | disposition home or self-care (01) | LOC: LABW 10:28 | PROVIDERS: ATTEND Internal Medicine Endocrinology, Diabetes & Metabolism | DX: Z79.01 Long term (current) use of anticoagulants (principal) | CPT/HCPCS: 36415; 85610 ==

== ENCOUNTER 2022-11-24 08:54 | Emergency (ER) | payer OTHER ==
[~2022-11-24] VITALS: Ht 162.6 cm; Wt 90.7 kg
[2022-11-24 09:07] VITALS: BP 145/88; TEMP 98
[2022-11-24 10:29] LABS: PLATELET COUNT 450 K/uL (152-353)
== END 2022-11-24 12:40 | disposition home or self-care (01) ==
LOC: ED 08:54
PROVIDERS: Emergency Medicine Emergency Medical Services
DX: N23 Unspecified renal colic (principal); M79.18 Myalgia, other site
CPT/HCPCS: 80053; 81002; 84484; 85027; 85610; 93005; 94664; 96361; 96374; 99284; J2270; J2405

== ENCOUNTER 2022-12-05 10:26 | Outpatient (CLI) | payer OTHER ==
[2022-12-05 17:06] LABS: PLATELET COUNT 337 K/uL (152-353)
[2022-12-06] MEDS ORDERED: META800T35 PO (10:39)
[2022-12-06] MEDS ORDERED: WARF2.5T8 PO (10:40)
[2022-12-06] MEDS ORDERED: EQL IRON SUPPL325 MG PO (10:42)
[2022-12-06] MEDS ORDERED: CODEINE/GUAIFEN1 SOL PO (10:43)
== END 2022-12-05 19:15 | disposition home or self-care (01) ==
LOC: LABW 10:26
PROVIDERS: ATTEND Internal Medicine Endocrinology, Diabetes & Metabolism
DX: Z79.01 Long term (current) use of anticoagulants (principal); D50.8 Other iron deficiency anemias; I50.32 Chronic diastolic (congestive) heart failure
CPT/HCPCS: 36415; 85027; 85610

== ENCOUNTER 2022-12-05 19:34 | Inpatient (IN) | payer OTHER ==
[2022-12-05] VITALS (8 sets, daily range): BP systolic 124–154; BP diastolic 37–71; TEMP 99.2–99.9; Ht 162.6 cm; Wt 123.5 kg
[~2022-12-05] VITALS: Ht 162.6 cm; Wt 123.5 kg
[2022-12-05 20:50] LABS: PLATELET COUNT 304 K/uL (152-353)
[2022-12-05 20:51] LABS: POTASSIUM 3.7 mmol/L (3.6-5.2)
[2022-12-06 04:00] VITALS: BP 100/46; TEMP 98.4
[2022-12-06 04:40] LABS: PLATELET COUNT 276 K/uL (152-353)
[2022-12-06 05:24] LABS: POTASSIUM 3.4 mmol/L (3.6-5.2)
[2022-12-06 08:00] VITALS: BP 141/61; TEMP 98.4
[2022-12-06] MEDS ORDERED: META800T35 PO (10:39)
[2022-12-06] MEDS ORDERED: WARF2.5T8 PO (10:40)
[2022-12-06] MEDS ORDERED: EQL IRON SUPPL325 MG PO (10:42)
[2022-12-06] MEDS ORDERED: CODEINE/GUAIFEN1 SOL PO (10:43)
[2022-12-06 12:00] VITALS: BP 110/44; TEMP 98.8
[2022-12-06 16:00] VITALS: BP 131/45; TEMP 98.6
[2022-12-06 19:33] VITALS: BP 114/75; TEMP 98.8
[2022-12-06 23:33] VITALS: BP 112/52; TEMP 98.3
[2022-12-07 03:56] VITALS: BP 110/56; TEMP 97.8
[2022-12-07 05:28] LABS: PLATELET COUNT 308 K/uL (152-353)
[2022-12-07 06:17] LABS: POTASSIUM 4.4 mmol/L (3.6-5.2)
[2022-12-07 08:00] VITALS: BP 142/65; TEMP 98.1
[2022-12-07 12:00] VITALS: BP 149/65; TEMP 97.5
[2022-12-07 16:00] VITALS: BP 160/71; TEMP 97.9
[2022-12-07 19:41] VITALS: BP 137/55; TEMP 98.2
[2022-12-07 23:39] VITALS: BP 109/58; TEMP 98.4
[2022-12-08 03:45] VITALS: BP 153/74; TEMP 97.7
[2022-12-08 05:11] LABS: PLATELET COUNT 301 K/uL (152-353)
[2022-12-08 05:40] LABS: POTASSIUM 4.3 mmol/L (3.6-5.2)
[2022-12-08 08:00] VITALS: BP 148/72; TEMP 97.6
[2022-12-08 12:00] VITALS: BP 137/47; TEMP 98.4
[2022-12-08 16:00] VITALS: BP 141/52; TEMP 97.8
[2022-12-08 20:00] VITALS: BP 152/88; TEMP 98.3
[2022-12-09] VITALS: BP 121/91; TEMP 98.2
[2022-12-09 04:00] VITALS: BP 129/61; TEMP 98.4
[2022-12-09 08:00] VITALS: BP 147/57; TEMP 97.3
[2022-12-09] MEDS ORDERED: CEFD300C2 PO (08:48)
[2022-12-09] MEDS ORDERED: PRED10TA27 PO (08:49)
[2022-12-09] MEDS ORDERED: ATRIPLA PO (08:50)
[2022-12-09] MEDS ORDERED: CODELIQ8 PO (08:50)
== END 2022-12-09 12:21 | disposition home or self-care (01) | DRG 189 ==
LOC: ED 19:34 → MED/SURG 22:34
PROVIDERS: Internal Medicine; ADMIT Internal Medicine; ATTEND Internal Medicine
DX: J96.11 Chronic respiratory failure with hypoxia (principal); J18.9 Pneumonia, unspecified organism; J44.1 Chronic obstructive pulmonary disease with (acute) exacerbation; B20 Human immunodeficiency virus [HIV] disease; Z87.891 Personal history of nicotine dependence; Z99.81 Dependence on supplemental oxygen; I50.9 Heart failure, unspecified; R05.9 Cough, unspecified; D72.828 Other elevated white blood cell count; Z79.01 Long term (current) use of anticoagulants; Z95.4 Presence of other heart-valve replacement
CPT/HCPCS: 36415; 80048; 80053; 81002; 83735; 83880; 84100; 85007; 85027; 85610; 87040; 87635; 94664; 94760; 96365; 96375; 99284; J0456; J0696; J2270; J2405; J2930; U0003

== ENCOUNTER → 2022-12-10 | Outpatient (CLI) | payer OTHER ==
[~2022-12-10] MED LIST changes: +CODEINE/GUAIFEN1 SOL PO; +EQL IRON SUPPL325 MG PO; +META800T35 PO; +WARF2.5T8 PO
[2022-12-10 11:29] LABS: PLATELET COUNT 299 K/uL (152-353)
[2022-12-10 11:36] LABS: POTASSIUM 3.5 mmol/L (3.6-5.2)
== END ==
LOC: LABW 11:08
PROVIDERS: ATTEND Internal Medicine Endocrinology, Diabetes & Metabolism
DX: Z79.01 Long term (current) use of anticoagulants (principal); I50.32 Chronic diastolic (congestive) heart failure; N18.32 Chronic kidney disease, stage 3b
CPT/HCPCS: 36415; 80048; 85027; 85610

== ENCOUNTER 2022-12-26 14:05 | Outpatient (CLI) | payer OTHER | END 2022-12-26 19:02 | disposition home or self-care (01) | LOC: RAD 14:05 | PROVIDERS: ATTEND Internal Medicine Endocrinology, Diabetes & Metabolism | DX: J44.9 Chronic obstructive pulmonary disease, unspecified (principal); R05.3 Chronic cough ==

== ENCOUNTER 2022-12-31 08:33 | Outpatient (CLI) | payer OTHER | END 2022-12-31 19:18 | disposition home or self-care (01) | LOC: LABW 08:33 | PROVIDERS: ATTEND Internal Medicine Endocrinology, Diabetes & Metabolism | DX: Z79.01 Long term (current) use of anticoagulants (principal) | CPT/HCPCS: 36415; 85610 ==

== ENCOUNTER 2023-01-07 11:01 | Outpatient (CLI) | payer OTHER ==
[2023-01-07 11:19] LABS: PLATELET COUNT 299 K/uL (152-353)
== END 2023-01-07 22:11 | disposition home or self-care (01) ==
LOC: LABW 11:01
PROVIDERS: ATTEND Internal Medicine Endocrinology, Diabetes & Metabolism
DX: Z79.01 Long term (current) use of anticoagulants (principal); I50.32 Chronic diastolic (congestive) heart failure; N18.32 Chronic kidney disease, stage 3b
CPT/HCPCS: 36415; 85027; 85610

== ENCOUNTER 2023-01-21 13:46 | Outpatient (CLI) | payer OTHER | END 2023-01-21 20:10 | disposition home or self-care (01) | LOC: LABW 13:46 | PROVIDERS: ATTEND Internal Medicine Endocrinology, Diabetes & Metabolism | DX: Z79.01 Long term (current) use of anticoagulants (principal) | CPT/HCPCS: 36415; 85610 ==

== ENCOUNTER 2023-02-04 08:14 | Outpatient (CLI) | payer OTHER | END 2023-02-04 20:21 | disposition home or self-care (01) | LOC: LABW 08:14 | PROVIDERS: ATTEND Internal Medicine Endocrinology, Diabetes & Metabolism | DX: Z79.01 Long term (current) use of anticoagulants (principal) | CPT/HCPCS: 36415; 85610 ==

== ENCOUNTER 2023-02-06 08:50 | Emergency (ER) | payer OTHER ==
[~2023-02-06] VITALS: Ht 162.6 cm; Wt 120.7 kg
[2023-02-06 08:50] VITALS: TEMP 97.8
[2023-02-06 09:22] LABS: PLATELET COUNT 185 K/uL (152-353)
[2023-02-06 09:43] VITALS: BP 111/51
[2023-02-06 10:27] LABS: PARTIAL THROMBOPLASTIN TIME > 180.0 SECONDS (23.9-36.7)
== END 2023-02-06 09:43 | disposition short-term general hospital (02) ==
LOC: ED 08:50
PROVIDERS: Family Medicine
DX: I21.3 ST elevation (STEMI) myocardial infarction of unspecified site (principal); R07.9 Chest pain, unspecified
CPT/HCPCS: 36415; 80053; 84484; 85027; 85610; 85730; 96365; 96375; 99285; J1644; J2270; J2405; J3010

== ENCOUNTER 2023-03-02 13:53 | Outpatient (CLI) | payer OTHER ==
[2023-03-02 14:10] LABS: PLATELET COUNT 327 K/uL (152-353)
[2023-03-02] MEDS ORDERED: ALBUTEROL108 MCG/AC INH (22:17)
[2023-03-02] MEDS ORDERED: [UNRECOGNIZED DRUG - OTHER] PO (22:18)
[2023-03-02] MEDS ORDERED: CLOP75TA2 PO (22:18)
[2023-03-02] MEDS ORDERED: ATRIPLA PO (22:19)
[2023-03-02] MEDS ORDERED: PANTOPRAZOLE 40MG TA PO (22:20)
[2023-03-02] MEDS ORDERED: NITR0.4S2 SL (22:23)
[2023-03-02] MEDS ORDERED: NEURONTIN800 MG PO (22:24)
[2023-03-02] MEDS ORDERED: TRELEGY ELLIPTA1 AER INH (22:25)
[2023-03-02] MEDS ORDERED: FARXIGA10 MG PO (22:26)
[2023-03-02] MEDS ORDERED: CARAFATE1 GM PO (22:27)
[2023-03-02] MEDS ORDERED: METO-837 PO (22:28)
== END 2023-03-02 19:17 | disposition home or self-care (01) ==
LOC: LABW 13:53
PROVIDERS: ATTEND Nurse Practitioner
DX: I50.32 Chronic diastolic (congestive) heart failure (principal); N18.32 Chronic kidney disease, stage 3b; Z95.2 Presence of prosthetic heart valve
CPT/HCPCS: 36415; 85027; 85610

== ENCOUNTER 2023-03-02 14:53 | Observation (INO) | payer OTHER ==
[~2023-03-02] VITALS: Ht 162.6 cm; Wt 118.0 kg
[2023-03-02 15:07] VITALS: BP 115/64; TEMP 98.5
[2023-03-02 16:00] LABS: PLATELET COUNT 302 K/uL (152-353)
[2023-03-02 16:13] LABS: PARTIAL THROMBOPLASTIN TIME 40.1 SECONDS (23.9-36.7)
[2023-03-02 19:00] VITALS: BP 152/59; TEMP 98.5; Ht 162.6 cm; Wt 118.0 kg
[2023-03-02 20:00] VITALS: BP 108/50; TEMP 99.2
[2023-03-02] MEDS ORDERED: ALBUTEROL108 MCG/AC INH (22:17)
[2023-03-02] MEDS ORDERED: CLOP75TA2 PO (22:18)
[2023-03-02] MEDS ORDERED: [UNRECOGNIZED DRUG - OTHER] PO (22:18)
[2023-03-02] MEDS ORDERED: ATRIPLA PO (22:19)
[2023-03-02] MEDS ORDERED: PANTOPRAZOLE 40MG TA PO (22:20)
[2023-03-02] MEDS ORDERED: NITR0.4S2 SL (22:23)
[2023-03-02] MEDS ORDERED: NEURONTIN800 MG PO (22:24)
[2023-03-02] MEDS ORDERED: TRELEGY ELLIPTA1 AER INH (22:25)
[2023-03-02] MEDS ORDERED: FARXIGA10 MG PO (22:26)
[2023-03-02] MEDS ORDERED: CARAFATE1 GM PO (22:27)
[2023-03-02] MEDS ORDERED: METO-837 PO (22:28)
[2023-03-03] VITALS (17 sets, daily range): BP systolic 12–135; BP diastolic 31–78; TEMP 97.7–98.4
== END 2023-03-03 15:40 | disposition home or self-care (01) ==
LOC: ED 14:53 → MED/SURG 16:09
PROVIDERS: Family Medicine; ADMIT Nurse Practitioner Family; ATTEND Internal Medicine Endocrinology, Diabetes & Metabolism
DX: D64.89 Other specified anemias (principal); R42 Dizziness and giddiness; I25.10 Atherosclerotic heart disease of native coronary artery without angina pectoris; J44.9 Chronic obstructive pulmonary disease, unspecified; I50.9 Heart failure, unspecified; B20 Human immunodeficiency virus [HIV] disease; G89.4 Chronic pain syndrome; E87.6 Hypokalemia; Z87.891 Personal history of nicotine dependence
CPT/HCPCS: 36430; 80053; 85027; 85610; 85730; 86850; 86900; 86901; 86922; 94760; 96374; 96375; 96376; 99221; 99283; G0378; J1170; J1940; J2405; P9016

== ENCOUNTER 2023-03-23 08:51 | Outpatient (CLI) | payer OTHER ==
[~2023-03-23 08:51] MED LIST changes: +CLOP75TA2 PO; +[UNRECOGNIZED DRUG - OTHER] PO
== END 2023-03-23 22:57 | disposition home or self-care (01) ==
LOC: RAD 08:51
PROVIDERS: ATTEND Nurse Practitioner Family
DX: J44.1 Chronic obstructive pulmonary disease with (acute) exacerbation (principal)

== ENCOUNTER 2023-04-08 13:09 | Outpatient (CLI) | payer OTHER | END 2023-04-08 19:19 | disposition home or self-care (01) | LOC: RESP 13:09 | PROVIDERS: ATTEND Nurse Practitioner Family | DX: J44.9 Chronic obstructive pulmonary disease, unspecified (principal) ==

== ENCOUNTER 2023-04-10 14:33 | Outpatient (CLI) | payer OTHER | END 2023-04-10 19:06 | disposition home or self-care (01) | LOC: RAD 14:33 | PROVIDERS: ATTEND Physician Assistant | DX: M25.511 Pain in right shoulder (principal) ==

== ENCOUNTER 2023-05-05 12:33 | Outpatient (CLI) | payer OTHER | END 2023-05-05 18:56 | disposition home or self-care (01) | LOC: CT 12:33 | PROVIDERS: ATTEND Internal Medicine Sleep Medicine | DX: J47.1 Bronchiectasis with (acute) exacerbation (principal) ==

== ENCOUNTER 2023-08-24 15:23 | Outpatient (CLI) | payer OTHER ==
[2023-08-24 17:09] LABS: PLATELET COUNT 300 K/uL (152-353)
== END 2023-08-24 19:48 | disposition home or self-care (01) ==
LOC: LABW 15:23
PROVIDERS: ATTEND Nurse Practitioner
DX: Z95.2 Presence of prosthetic heart valve (principal); Z79.01 Long term (current) use of anticoagulants
CPT/HCPCS: 36415; 85027; 85610

== ENCOUNTER 2023-08-24 18:31 | Emergency (ER) | payer OTHER ==
[~2023-08-24] VITALS: Ht 162.6 cm; Wt 114.8 kg
[2023-08-24 18:39] VITALS: BP 127/40; TEMP 97.5
== END 2023-08-25 02:03 | disposition home or self-care (01) ==
LOC: ED 18:31
DX: D64.89 Other specified anemias (principal); R06.02 Shortness of breath; Z95.2 Presence of prosthetic heart valve; Z79.01 Long term (current) use of anticoagulants
CPT/HCPCS: 36415; 36430; 83880; 85027; 85610; 86850; 86900; 86901; 86922; 99284; P9016

== ENCOUNTER 2023-08-26 12:22 | Outpatient (CLI) | payer OTHER ==
[2023-08-26 13:12] LABS: PLATELET COUNT 323 K/uL (152-353)
[2023-08-26 13:57] LABS: POTASSIUM 3.5 mmol/L (3.6-5.2)
== END 2023-08-26 19:28 | disposition home or self-care (01) ==
LOC: CT 12:22
PROVIDERS: ATTEND Internal Medicine Critical Care Medicine
DX: F17.210 Nicotine dependence, cigarettes, uncomplicated (principal); Z95.2 Presence of prosthetic heart valve; Z79.01 Long term (current) use of anticoagulants
CPT/HCPCS: 80053; 85027; 85610; 85730

== ENCOUNTER 2023-09-10 09:09 | Outpatient (CLI) | payer OTHER ==
[2023-09-10 09:40] LABS: PLATELET COUNT 348 K/uL (152-353)
== END 2023-09-10 19:26 | disposition home or self-care (01) ==
LOC: LABW 09:09
PROVIDERS: ATTEND Specialist
DX: Z95.2 Presence of prosthetic heart valve (principal); Z79.01 Long term (current) use of anticoagulants; Z51.81 Encounter for therapeutic drug level monitoring
CPT/HCPCS: 36415; 85027; 85610

== ENCOUNTER 2023-09-15 09:57 | Outpatient (CLI) | payer OTHER | END 2023-09-15 19:28 | disposition home or self-care (01) | LOC: LABW 09:57 | PROVIDERS: ATTEND Specialist | DX: Z95.2 Presence of prosthetic heart valve (principal); Z79.01 Long term (current) use of anticoagulants; Z51.81 Encounter for therapeutic drug level monitoring | CPT/HCPCS: 36415; 85610 ==